=== PATIENT | female | born 1935 | race Caucasian/White ===

== ENCOUNTER 2018-06-18 18:26 | Emergency (ER) | payer MEDICARE, OTHER, SELFPAY ==
[2018-06-18 18:30] VITALS: BP 139/84; PULSE 99; RESP 18; TEMP 36.6; O2SAT 99
--- NOTE | 2018-06-18 18:40 | DI.RAD.S_ITS ---
PROCEDURE: XR CHEST 2V INDICATIONS: Shortness of breath TECHNIQUE: 2 views of the chest were acquired. COMPARISON: None. FINDINGS: Surgical changes and devices: None. Lungs and pleura: Lungs are clear. 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 No pleural effusions or pneumothorax. Mediastinum: Mediastinal contours are normal. Heart size is normal. Bones and chest wall: No suspicious bony abnormalities. Soft tissues appear unremarkable. 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 No gross pulmonary infiltrates. Dictated by: Aakash Conway M.D. on 06/18/2018 at 20:41 Approved by: Aakash Conway M.D. on 06/18/2018 at 20:42
--- NOTE | 2018-06-18 19:50 | ED.SOB ---
HPI - SOB/Dyspnea General Chief Complaint: Shortness of Breath/Dyspnea Stated Complaint: SOB Time Seen by Provider: 06/18/18 19:50 Source: patient Mode of arrival: ambulatory Limitations: no limitations History of Present Illness 82-year-old female with chronic atrial fibrillation. Is also on Lasix and spironolactone. States she has been diagnosed with CHF. Does not know her last ejection fraction. States that for the past several days if not weeks she has had progressively worsening shortness of breath especially dyspnea on exertion. No chest pain. Does have lower extremity swelling. States in the past she has had increase her Lasix dose but currently is only on 40 mg a day. Was brought in today because her kids told her she should get checked out. Related Data Allergies Allergy/AdvReac Type Severity Reaction Status Date / Time gabapentin Allergy Depression Verified 06/18/18 18:34 Review of Systems Constitutional Denies fever(s) Cardiovascular Denies chest pain, Reports dyspnea and Reports dyspnea on exertion Respiratory Denies cough, Reports dyspnea and Reports dyspnea on exertion Gastrointestinal Gastrointestinal: Denies abdominal pain, Denies nausea and Denies vomiting Musculoskeletal Denies myalgias and Denies arthralgias Integumentary/Breasts Denies rash Hematologic/Lymphatic Denies easy bruising Allergic/Immunologic Denies urticaria FOR[facility]LY [facility] Medical History Atrial fibrillation (Acute) Congestive heart failure (Acute) Social History Smoking Status: Never smoker Social History Smoking Status: Never smoker Exam Initial Vital Signs Initial Vital Signs: Vital Signs Temperature 97.8 F 06/18/18 18:30 Pulse Rate 99 H 06/18/18 18:30 Respiratory Rate 18 06/18/18 18:30 Blood Pressure 139/84 06/18/18 18:30 Pulse Oximetry 99 06/18/18 18:30 Const General: cooperative, comfortable, well developed, well groomed and No acute distress Orientation: alert, awake and oriented x3 HENMT Head: normal to inspection and normocephalic Resp Effort & Inspection: normal respiratory effort Auscultation: clear to auscultation bilaterally Cardio Rate: regular rate Rhythm: abnormal rhythm Pulses: radial pulses present GI Inspection: non-distended Palpation: soft Skin Lesions: no lesions Rashes: no rashes Neuro General: alert, awake and oriented x3 Extrem General: normal to inspection and capillary refill normal Psych Appearance: grossly normal and well kempt Course Orders Ordered: ED Orders 06/18/18 18:40 XR chest 2V Stat EKG-12 Lead Stat Vital Signs - 8 hr 06/18/18 21:24 Pulse Rate 81 Respiratory Rate 15 Blood Pressure [Left Arm] 128/82 Pulse Oximetry 98 MDM - SOB/Dyspnea Imaging Data Chest x-ray: Radiologist's impression: [address] [address] XRay Report Signed Patient: Nadia Da Silva GMR#: [id number] : [id number]:[id number] Age/Sex: 82 / FDate of Service: 06/18/18 Loc: ED Accession Number: [id number] Procedure: XR chest 2V Ordering Provider: Zhao Bolanos D.O. PROCEDURE: XR CHEST 2V INDICATIONS: Shortness of breath TECHNIQUE: 2 views of the chest were acquired. COMPARISON: None. FINDINGS: Surgical changes and devices: None. Lungs and pleura: Lungs are clear. 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 No pleural effusions or pneumothorax. Mediastinum: Mediastinal contours are normal. Heart size is normal. Bones and chest wall: No suspicious bony abnormalities. Soft tissues appear unremarkable. 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 No gross pulmonary infiltrates. Dictated by: Aakash Conway M.D. on 06/18/2018 at 20:41 Approved by: Aakash Conway M.D. on 06/18/2018 at 20:42 ECG Data Attestation: I personally reviewed and interpreted this ECG as follows: Prior ECG tracings: not available for review Interpretation: Atrial fibrillation Ventricular rate of 95 Normal axis Normal QRS Normal QTC No ST T wave changes MDM Narrative Medical decision making narrative: Patient not any respiratory distress. Not hypoxic. Not tachypneic. No signs of pneumonia on the x-ray. I do suspect that she has the beginnings of fluid overload secondary to her history of atrial fibrillation. Will increase her Lasix for the next couple days. She is currently on potassium. Will have her contact her primary doctor for follow-up. She was given return precautions. She expressed understanding and agreement with plan. Discharge Plan Departure Patient Disposition: Home Clinical Impression: Edema extremities Atrial fibrillation Qualifiers: Atrial fibrillation type: chronic Qualified Code(s): I48.2 - Chronic atrial fibrillation Discharge Date/Time: 06/18/18 21:51 Interventions: ED Discharge Assessment Last Done: 06/18/18 21:50 Instructions: Edema (Alternative Therapy), DI for Peripheral Edema -- Bilateral Activity Restrictions/Additional Instructions: Continue to take your potassium. I would increase your Lasix to 80 mg a day for the next 2 days. If this does not help your edema that you can increase it to 120 mg a day. I would not go above this dose without consulting your primary doctor. Tomorrow contact your primary doctor for follow-up early next week. Return to the emergency department for any new or worsening symptoms
[2018-06-18 21:24] VITALS: BP 128/82; PULSE 81; RESP 15; O2SAT 98
== END 2018-06-18 21:51 | disposition home or self-care (01) ==
PROVIDERS: Emergency Provider Emergency Medicine; Family Provider Family Medicine
DX: R60.0 Localized edema (principal); I48.2 Chronic atrial fibrillation
CPT/HCPCS: 71046; 93005; 99282; 99284

== ENCOUNTER → 2020-09-10 14:47 | Outpatient (CLI) | payer MEDICARE, OTHER, SELFPAY ==
--- NOTE | 2020-09-10 | DI.ECHO.S_ITS ---
[facility] +---------+ : : [id number] . : : : : [place] : : : : [id number] : : : : Phone: [phone] Echocardiogram Report + + :Name: REJI PEACE Study Date: 09/10/2020 Height: 62 in : :[facility] ReadingLocation: Weight: 140 lb : : Gender: Female BSA: 1.6 m2 : :: 1935 Age: 85 yrs BP: 128/96 mmHg: :Reason For Study: Atrial fibrillation : :Ordering Physician: HONORIO, : :MARK Velásquez Performed By: Jorge Chappell : :Referring: MARK OLMEDO : + + Interpretation Summary The ejection fraction is estimated to be 25-30%. There is moderate global hypokinesis of the left ventricle. Both atria are severely dilated. There is mild to moderate mitral regurgitation. There is moderate tricuspid regurgitation. The right ventricular systolic pressure is estimated to be at least 48 mmHg based on an estimated right atrial pressure of 8 mm Hg. Procedure: A two-dimensional transthoracic echocardiogram with color flow and Doppler was performed. The study quality was technically adequate. There is no prior echocardiogram noted for this patient. The patient was in atrial fibrillation with heart rates between 98-153 bpm during the exam. Left Ventricle: The left ventricle is normal in size and wall thickness. The ejection fraction is estimated to be 25-30%. There is moderate global hypokinesis of the left ventricle. Diastolic function could not be accurately assessed due to atrial fibrillation. Right Ventricle: The right ventricle is normal in size and function. Atria: Both atria are severely dilated. There is no Doppler evidence for an interatrial shunt. Mitral Valve: There is mild mitral annular calcification. The mitral valve leaflets appear mildly thickened, but open well. There is mild to moderate mitral regurgitation. Aortic Valve: The aortic valve is normal in structure and function. There is trace aortic regurgitation. Tricuspid Valve: The tricuspid valve is normal in structure and function. There is moderate tricuspid regurgitation. The right ventricular systolic pressure is estimated to be at least 48 mmHg based on an estimated right atrial pressure of 8 mm Hg. Pulmonic Valve: The pulmonic valve is normal in structure and function. There is mild pulmonic regurgitation. Great Vessels: The aortic root is normal size. The IVC is of normal diameter and collapses less than 50% with a sniff. This suggests a right atrial pressure of 8 mm Hg. Pericardium/ Pleura There is no pericardial effusion. There is no pleural effusion. MMode/2D Measurements & Calculations LVIDd: 4.6 cm LVOT diam: 1.9 cm LVIDs: 3.7 cm Ao root diam: 2.9 cm FS: 20.2 % asc Aorta Diam: 2.9 cm IVSd: 0.79 cm LVPWd: 0.78 cm LV bennett. diameter/BSA (cm/m^2): 2.8 LV sys. diameter/BSA (cm/m^2): 2.3 LA A2 area: 23.5 cm2 RA long axis: 7.4 cm LA A4 area: 29.3 cm2 RA area: 31.3 cm2 LA length (vol): 7.1 cm RA vol: 112.3 ml LA vol: 82.4 ml RA : 68.4 ml/m2 LA vol index: 50.2 ml/m2 IVC diam: 2.0 cm TAPSE: 1.8 cm Doppler Measurements & Calculations Ao V2 max: 111.3 cm/sec LVOT Max Xavier: 58.7 cm/sec Ao V2 mean: 82.3 cm/sec LV V1 max P.4 mmHg Ao max P.0 mmHg LV V1 VTI: 10.6 cm Ao mean P.9 mmHg CAITLIN(I,D): 1.7 cm2 Ao V2 VTI: 17.4 cm CAITLIN(V,D): 1.4 cm2 sev ratio: 0.61 CAITLIN indexed to BSA (cm^2/m^2): 1.0 TR max xavier: 290.9 cm/sec MR VTI: 154.4 cm TR max P.9 mmHg PA V2 max: 81.0 cm/sec PA V2 mean: 56.4 cm/sec PA mean P.4 mmHg PA pr(Accel): 43.9 mmHg SV(LVOT): 28.9 ml Reading Physician:05:[id number] PM
[2020-09-10 16:52] LABS: BUN Creatinine Ratio 21.5 (6-22); Blood Urea Nitrogen 17 mg/dL (7-17); Calcium 10.9 mg/dL (8.4-10.2); Carbon Dioxide 25 mmol/L (22-32); Chloride 107 mmol/L (98-107); Estimated Glomerular Filt Rate > 60.0 mL/min (>60); Glucose 107 mg/dL (80-110); HEMOLYSIS < 15 (0-50); Potassium 4.2 mmol/L (3.4-5.1); Sodium 140 mmol/L (137-145)
[2020-09-10 16:57] LABS: NT-proBNP (BNP-Adult 18+) 2790 pg/mL (<450)
== END ==
PROVIDERS: Family Provider Family Medicine; Referring Provider Nurse Practitioner; Visit Provider Nurse Practitioner
DX: I48.20 Chronic atrial fibrillation, unspecified (principal); I08.1 Rheumatic disorders of both mitral and tricuspid valves; R06.00 Dyspnea, unspecified
CPT/HCPCS: 36415; 80048; 83880; 93306

== ENCOUNTER 2020-09-13 14:51 | Emergency (ER) | payer MEDICARE, OTHER, SELFPAY ==
[2020-09-13] VITALS (16 sets, daily range): BP systolic 111–172; BP diastolic 63–114; PULSE 83–151; RESP 16–28; TEMP 36.9; O2SAT 82–99; BMI 25.6
--- NOTE | 2020-09-13 14:59 | DI.RAD.S_ITS ---
PROCEDURE: XR CHEST 1V INDICATIONS: chest pain TECHNIQUE: One view of the chest was acquired. COMPARISON: [facility], CR, XR CHEST 2V, 06/18/2018, 19:44. FINDINGS: Surgical changes and devices: None. Lungs and pleura: Mild appearance of increased of pulmonary vascularity. No pleural effusions or pneumothorax. Mediastinum: Mediastinal contours appear normal. Heart size is enlarged. Bones and chest wall: No suspicious bony lesions. Overlying soft tissues appear unremarkable. IMPRESSION: Mild increased vascularity suggestive of edema. Dictated by: Mitzy Llanes M.D. on 09/13/2020 at 15:52 Approved by: Mitzy Llanes M.D. on 09/13/2020 at 15:53
[2020-09-13 17:36] LABS: Prothrombin Time 56.8 SECONDS (10.1-12.7)
[2020-09-13 17:39] LABS: PTT Partial Thromboplastin Tim 52 SECONDS (26.4-36.2)
[2020-09-13 17:41] LABS: Alanine Aminotransferase 22 IU/L (<35); Albumin 4.5 g/dL (3.5-5.0); Albumin Globulin Ratio 1.2 (1.0-2.8); Alkaline Phosphatase 126 U/L (38-126); Aspartate Aminotransferase 37 IU/L (14-36); BUN Creatinine Ratio 21.3 (6-22); Blood Urea Nitrogen 17 mg/dL (7-17); Calcium 10.9 mg/dL (8.4-10.2); Carbon Dioxide 25 mmol/L (22-32); Chloride 105 mmol/L (98-107); Creatine Kinase 276 U/L (30-135); Estimated Glomerular Filt Rate > 60.0 mL/min (>60); Globulin 3.8 g/dL (1.7-4.1); Glucose 116 mg/dL (80-110); HEMOLYSIS < 15 (0-50); Lipase 131 U/L (23-300); Potassium 3.9 mmol/L (3.4-5.1); Sodium 140 mmol/L (137-145); Total Protein 8.3 g/dL (6.3-8.2)
[2020-09-13 17:44] LABS: Add Manual Diff / Slide Review NO; Basophils Absolute Auto 100 /uL (0-100); Basophils Percent Auto 1.1 % (0-2); Eosinophils Absolute Auto 200 /uL (0-450); Eosinophils Percent Auto 2.2 % (2-4); Hematocrit 43.5 % (36-46); Hemoglobin 14.3 g/dL (12.0-16.0); Lymphocytes Absolute Auto 3700 /uL (1100-4500); Lymphocytes Percent Auto 36.5 % (25-40); Mean Corpuscular Hemoglobin 30.7 PG (26-34); Mean Corpuscular Volume 93.1 fL (80-100); Monocytes Absolute Auto 1200 /uL (0-900); Monocytes Percent Auto 12.4 % (3-14); Neutrophils Absolute Auto 4800 /uL (1500-7000); Neutrophils Percent Auto 47.8 % (50-75); Platelet Count 163 X10^3/uL (150-400); Red Blood Cell Count 4.67 X10^6/uL (4.0-5.2); Red Cell Distribution Width 14.2 % (11.6-14.8)
[2020-09-13 17:53] LABS: INR 4.8 (0.9-1.3); NT-proBNP (BNP-Adult 18+) 1720 pg/mL (<450); Troponin I < 0.012 ng/mL (0.01-0.034)
[2020-09-13 17:56] LABS: CKMB % Relative Index 2.8 % (1.5-5.0); Creatine Kinase MB 7.66 ng/mL (<2.37)
--- NOTE | 2020-09-13 18:06 | ED_ITS ---
HPI - Extremity Problem <Harvey Walker DO - Last Filed: 09/15/20 01:14> General Chief complaint: Extremity Problem,Nontraumatic Stated complaint: Retaining fluid-sent over from cardiology Time Seen by Provider: 09/13/20 18:06 Source: patient and family Mode of arrival: Wheelchair Limitations: no limitations History of Present Illness HPI Narrative: 85-year-old female nonsmoker with history of persistent AFib, CHF and worsening ejection fraction sent here by Cardiology due to failing medical therapy and request to expedite an evaluation for possible pacemaker. She had a recent echo noting an EF down to 25%. She is taking medications as directed and denies any significant shortness of breath, fatigue or weight gain but states minimal exertion will make her profoundly short of breath. She states her heart rate is pretty much always well above 100. She denies runny nose or sore throat. She denies any chest pain. MD Complaint: extremity swelling Onset (ago): day(s) Associated symptoms: shortness of breath Related Data Home Medications Medication Instructions Recorded Confirmed amitriptyline 25 mg tablet 25 mg PO BEDTIME 09/13/20 09/13/20 digoxin 125 mcg (0.125 mg) tablet 125 mcg PO DAILY 09/13/20 09/13/20 furosemide 40 mg tablet 40 mg PO DAILY 09/13/20 09/13/20 metoprolol succinate 100 mg 100 mg PO BID 09/13/20 09/14/20 tablet,extended release 24 hr warfarin 2.5 mg tablet See Rx Instructions .ROUTE .COMPLEX 09/13/20 09/13/20 losartan 25 mg tablet 25 mg PO DAILY 09/14/20 09/14/20 Allergies Allergy/AdvReac Type Severity Reaction Status Date / Time gabapentin Allergy Depression Verified 09/13/20 15:06 Review of Systems <Harvey Walker DO - Last Filed: 09/15/20 01:14> Constitutional Constitutional: Denies chills, Denies fatigue, Denies fever(s), Denies frequent falls, Denies lethargy and Denies weakness Eyes Eyes: Denies change in vision, Denies eye discharge, Denies irritation and Denies loss of vision ENT Ears, Nose, Mouth, and Throat: Denies change in voice, Denies dizziness, Denies neck pain, Denies sore throat and Denies throat swelling Cardiovascular Cardiovascular: Denies chest pain, Denies irregular heart rhythm, Reports leg edema, Denies lightheadedness, Denies palpitations, Reports dyspnea, Reports dyspnea on exertion and Reports orthopnea Respiratory Respiratory: Denies cough, Reports dyspnea, Reports dyspnea on exertion and Denies wheezing Gastrointestinal Gastrointestinal: Denies abdominal pain, Denies change in bowel habits, Denies diarrhea, Denies nausea and Denies vomiting Musculoskeletal Musculoskeletal: Denies neck pain and Denies numbness Integumentary/Breasts Skin/Breast: Denies pruritus, Denies erythema, Denies rash and Denies wounds Neurologic Neurologic: Denies behavioral changes, Denies confusion, Denies dizziness, Denies frequent falls, Denies loss of vision, Denies numbness and Denies weakness Psychiatric Psychiatric: Denies anxiety, Denies behavioral changes, Denies confusion, Denies depression, Denies homicidal ideation and Denies suicidal ideation Endocrine Endocrine: Denies fatigue, Denies flushing and Denies palpitations Hematologic/Lymphatic Hematologic/Lymphatic: Denies easy bruising Allergic/Immunologic Allergic/Immunologic: Denies urticaria, Denies throat swelling and Denies wheezing Patient History <Harvey Walker DO - Last Filed: 09/15/20 01:14> Medical History Atrial fibrillation Congestive heart failure Social History Smoking Status: Never smoker Smoking Status: Never smoker alcohol intake frequency: 0-2 drinks per day Substance Use Type: does not use Exam <Harvey Walker DO - Last Filed: 09/15/20 01:14> Narrative Exam Narrative: GENERAL: [85] year old patient appears stated age. Well- developed patient, in mild distress. HEAD: Atraumatic. Normocephalic. EYES: Pupils equal round and reactive. Extraocular motions intact. No scleral icterus. No injection or drainage. ENT: Nose without bleeding, purulent drainage. Throat without erythema, tonsillar hypertrophy or exudate. Airway patent. NECK: Trachea midline. Non tender CARDIOVASCULAR: Tachycardic and irregular rhythm without murmurs, gallops, or rubs. RESPIRATORY: No significant work of breathing, faint crackles bilateral bases GASTROINTESTINAL: Abdomen soft, non-tender, nondistended. EXTREMITIES: 2+ pitting edema bilateral lower extremities BACK: Nontender without deformity or crepitance. No flank tenderness. NEURO: AOx3. SKIN: No rash or erythema of visible areas Initial Vital Signs Initial Vital Signs: Vital Signs Temperature 98.4 F 09/13/20 15:02 Pulse Rate 114 H 09/13/20 15:02 Respiratory Rate 18 09/13/20 15:02 Blood Pressure 126/88 09/13/20 15:02 Pulse Oximetry 99 09/13/20 15:02 <Eleazar Greenberg MD - Last Filed: 09/24/20 01:25> Initial Vital Signs Initial Vital Signs: Vital Signs Temperature 98.4 F 09/13/20 15:02 Pulse Rate 114 H 09/13/20 15:02 Respiratory Rate 18 09/13/20 15:02 Blood Pressure 126/88 09/13/20 15:02 Pulse Oximetry 99 09/13/20 15:02 Course <Harvey Walker DO - Last Filed: 09/15/20 01:14> Course Course Narrative: Discussed case with on-call Cardiology, Dr. Flynn, he has reviewed the chart and notes, hope is to transfer patient who likely needs pacer currently no beds at [facility], paperwork faxed, we are in the queue. Rina has been notified. Orders Ordered: Discontinued Medications Amitriptyline HCl (Amitriptyline 25 Mg Tablet) 25 mg PO NOW ONE Stop: 09/13/20 22:49 Last Admin: 09/13/20 23:06 Dose: 25 mg Documented by: [email or web address] Digoxin (Digoxin 0.125 Mg Tablet) 0.125 mg PO NOW ONE Stop: 09/14/20 08:01 Last Admin: 09/14/20 09:49 Dose: 0.125 mg Documented by: [email or web address] Furosemide (Furosemide 40 Mg/4 Ml Vial) 40 mg IV NOW ONE Stop: 09/13/20 20:37 Last Admin: 09/13/20 20:58 Dose: 40 mg Documented by: JOEL Furosemide (Furosemide 40 Mg Tablet) 40 mg PO NOW ONE Stop: 09/14/20 12:36 Last Admin: 09/14/20 12:53 Dose: 40 mg Documented by: TRACI Loperamide HCl (Loperamide 2 Mg Capsule) 4 mg PO NOW ONE Stop: 09/14/20 15:57 Last Admin: 09/14/20 16:02 Dose: 4 mg Documented by: LAUREN Losartan Potassium (Losartan 25 Mg Tablet) 25 mg PO NOW ONE Stop: 09/13/20 22:49 Last Admin: 09/13/20 23:06 Dose: 25 mg Documented by: SABI Metoprolol Succinate (Metoprolol Er 50 Mg Tablet) 100 mg PO NOW ONE Stop: 09/13/20 22:46 Last Admin: 09/13/20 23:06 Dose: 100 mg Documented by: SABI Metoprolol Succinate (Metoprolol Er 50 Mg Tablet) 100 mg PO NOW ONE Stop: 09/14/20 12:38 Last Admin: 09/14/20 12:54 Dose: 100 mg Documented by: TRACI Warfarin Sodium (Warfarin 5 Mg Tablet) 0.125 mg PO NOW ONE Stop: 09/13/20 22:48 Last Admin: 09/13/20 23:07 Dose: 0.125 mg Documented by: SABI Vital Signs Vital signs: Vital Signs - 8 hr 09/14/20 17:30 09/14/20 17:56 Pulse Rate 105 H 120 H Respiratory Rate 19 18 Blood Pressure 124/83 144/78 H Pulse Oximetry 96 92 <Eleazar Greenberg MD - Last Filed: 09/24/20 01:25> Course Course Narrative: 7:00 a.m.. Sign out from the night physician, awaiting call back from [facility] for admission. Awaiting for bed availability. Cardiology desires patient to be transferred there for continuity of care and possible pacemaker. No new issues. 4:06 p.m.. Long wait for bed due to bed shortage is in staff in all the hospitals locally. Orders Ordered: Discontinued Medications Amitriptyline HCl (Amitriptyline 25 Mg Tablet) 25 mg PO NOW ONE Stop: 09/13/20 22:49 Last Admin: 09/13/20 23:06 Dose: 25 mg Documented by: SABI Digoxin (Digoxin 0.125 Mg Tablet) 0.125 mg PO NOW ONE Stop: 09/14/20 08:01 Last Admin: 09/14/20 09:49 Dose: 0.125 mg Documented by: JSHAFF Furosemide (Furosemide 40 Mg/4 Ml Vial) 40 mg IV NOW ONE Stop: 09/13/20 20:37 Last Admin: 09/13/20 20:58 Dose: 40 mg Documented by: JOEL Furosemide (Furosemide 40 Mg Tablet) 40 mg PO NOW ONE Stop: 09/14/20 12:36 Last Admin: 09/14/20 12:53 Dose: 40 mg Documented by: TRACI Loperamide HCl (Loperamide 2 Mg Capsule) 4 mg PO NOW ONE Stop: 09/14/20 15:57 Last Admin: 09/14/20 16:02 Dose: 4 mg Documented by: LAUREN Losartan Potassium (Losartan 25 Mg Tablet) 25 mg PO NOW ONE Stop: 09/13/20 22:49 Last Admin: 09/13/20 23:06 Dose: 25 mg Documented by: SABI Metoprolol Succinate (Metoprolol Er 50 Mg Tablet) 100 mg PO NOW ONE Stop: 09/13/20 22:46 Last Admin: 09/13/20 23:06 Dose: 100 mg Documented by: SABI Metoprolol Succinate (Metoprolol Er 50 Mg Tablet) 100 mg PO NOW ONE Stop: 09/14/20 12:38 Last Admin: 09/14/20 12:54 Dose: 100 mg Documented by: TRACI Warfarin Sodium (Warfarin 5 Mg Tablet) 0.125 mg PO NOW ONE Stop: 09/13/20 22:48 Last Admin: 09/13/20 23:07 Dose: 0.125 mg Documented by: SABI Consultations Consultation #1: Spoke with hospitalist [facility] Dr. cooper, will accept pt Time: 16:06 Vital Signs Vital signs: Vital Signs - 8 hr 09/14/20 17:30 09/14/20 17:56 Pulse Rate 105 H 120 H Respiratory Rate 19 18 Blood Pressure 124/83 144/78 H Pulse Oximetry 96 92 MDM - Extremity (Nontraumatic) <Harvey Walker DO - Last Filed: 09/15/20 01:14> Lab Data Result diagrams: 09/13/20 17:22 09/13/20 17:22 Labs: Lab Results 09/13/20 09/13/20 09/13/20 Range/Units 17:22 17:22 17:22 WBC 10.0 (4.5-11.0) X10^3/uL RBC 4.67 (4.0-5.2) X10^6/uL Hgb 14.3 (12.0-16.0) g/dL Hct 43.5 (36-46) % MCV 93.1 (80-100) fL MCH 30.7 (26-34) PG MCHC 33.0 (30-36) % RDW 14.2 (11.6-14.8) % Plt Count 163 (150-400) X10^3/uL Neut % (Auto) 47.8 L (50-75) % Lymph % (Auto) 36.5 (25-40) % [place] % (Auto) 12.4 (3-14) % Eos % (Auto) 2.2 (2-4) % Baso % (Auto) 1.1 (0-2) % Neut # (Auto) 4800 (4811-3174) /uL Lymph # (Auto) 3700 (6923-0065) /uL [place] # (Auto) 1200 H (0-900) /uL Eos # (Auto) 200 (0-450) /uL Baso # (Auto) 100 (0-100) /uL PT 56.8 H (10.1-12.7) SECONDS INR 4.8 H* (0.9-1.3) APTT 52 H (26.4-36.2) SECONDS Sodium 140 (137-145) mmol/L Potassium 3.9 (3.4-5.1) mmol/L Chloride 105 (98-107) mmol/L Carbon Dioxide 25 (22-32) mmol/L BUN 17 (7-17) mg/dL Creatinine 0.80 (0.52-1.04) mg/dL Estimated GFR > 60.0 (>60) mL/min BUN/Creatinine Ratio 21.3 (6-22) Glucose 116 H (80-110) mg/dL Calcium 10.9 H (8.4-10.2) mg/dL Total Bilirubin 1.0 (0.2-1.3) mg/dL AST 37 H (14-36) IU/L ALT 22 (<35) IU/L Alkaline Phosphatase 126 (38-126) U/L Total Creatine Kinase 276 H (30-135) U/L CK-MB (CK-2) 7.66 H (<2.37) ng/mL CK-MB (CK-2) Rel Index 2.8 (1.5-5.0) % Troponin I < 0.012 (0.01-0.034) ng/mL NT-Pro-B Natriuret Pep 1720 H (<450) pg/mL Total Protein 8.3 H (6.3-8.2) g/dL Albumin 4.5 (3.5-5.0) g/dL Globulin 3.8 (1.7-4.1) g/dL Albumin/Globulin Ratio 1.2 (1.0-2.8) Lipase 131 (23-300) U/L Digoxin (0.8-2.0) ng/mL SARS-CoV-2 (PCR) (Negative) 09/13/20 09/13/20 09/13/20 Range/Units 17:22 17:22 18:40 WBC (4.5-11.0) X10^3/uL RBC (4.0-5.2) X10^6/uL Hgb (12.0-16.0) g/dL Hct (36-46) % MCV (80-100) fL MCH (26-34) PG MCHC (30-36) % RDW (11.6-14.8) % Plt Count (150-400) X10^3/uL Neut % (Auto) (50-75) % Lymph % (Auto) (25-40) % [place] % (Auto) (3-14) % Eos % (Auto) (2-4) % Baso % (Auto) (0-2) % Neut # (Auto) (9816-5072) /uL Lymph # (Auto) (2546-6191) /uL [place] # (Auto) (0-900) /uL Eos # (Auto) (0-450) /uL Baso # (Auto) (0-100) /uL PT (10.1-12.7) SECONDS INR (0.9-1.3) APTT (26.4-36.2) SECONDS Sodium (137-145) mmol/L Potassium (3.4-5.1) mmol/L Chloride (98-107) mmol/L Carbon Dioxide (22-32) mmol/L BUN (7-17) mg/dL Creatinine (0.52-1.04) mg/dL Estimated GFR (>60) mL/min BUN/Creatinine Ratio (6-22) Glucose (80-110) mg/dL Calcium (8.4-10.2) mg/dL Total Bilirubin (0.2-1.3) mg/dL AST (14-36) IU/L ALT (<35) IU/L Alkaline Phosphatase (38-126) U/L Total Creatine Kinase (30-135) U/L CK-MB (CK-2) (<2.37) ng/mL CK-MB (CK-2) Rel Index (1.5-5.0) % Troponin I < 0.012 (0.01-0.034) ng/mL NT-Pro-B Natriuret Pep (<450) pg/mL Total Protein (6.3-8.2) g/dL Albumin (3.5-5.0) g/dL Globulin (1.7-4.1) g/dL Albumin/Globulin Ratio (1.0-2.8) Lipase (23-300) U/L Digoxin < 0.4 L (0.8-2.0) ng/mL SARS-CoV-2 (PCR) Negative (Negative) <Eleazar Greenberg MD - Last Filed: 09/24/20 01:25> Lab Data Labs: Lab Results 09/13/20 09/13/20 09/13/20 Range/Units 17:22 17:22 17:22 WBC 10.0 (4.5-11.0) X10^3/uL RBC 4.67 (4.0-5.2) X10^6/uL Hgb 14.3 (12.0-16.0) g/dL Hct 43.5 (36-46) % MCV 93.1 (80-100) fL MCH 30.7 (26-34) PG MCHC 33.0 (30-36) % RDW 14.2 (11.6-14.8) % Plt Count 163 (150-400) X10^3/uL Neut % (Auto) 47.8 L (50-75) % Lymph % (Auto) 36.5 (25-40) % [place] % (Auto) 12.4 (3-14) % Eos % (Auto) 2.2 (2-4) % Baso % (Auto) 1.1 (0-2) % Neut # (Auto) 4800 (2326-8525) /uL Lymph # (Auto) 3700 (4844-2476) /uL [place] # (Auto) 1200 H (0-900) /uL Eos # (Auto) 200 (0-450) /uL Baso # (Auto) 100 (0-100) /uL PT 56.8 H (10.1-12.7) SECONDS INR 4.8 H* (0.9-1.3) APTT 52 H (26.4-36.2) SECONDS Sodium 140 (137-145) mmol/L Potassium 3.9 (3.4-5.1) mmol/L Chloride 105 (98-107) mmol/L Carbon Dioxide 25 (22-32) mmol/L BUN 17 (7-17) mg/dL Creatinine 0.80 (0.52-1.04) mg/dL Estimated GFR > 60.0 (>60) mL/min BUN/Creatinine Ratio 21.3 (6-22) Glucose 116 H (80-110) mg/dL Calcium 10.9 H (8.4-10.2) mg/dL Total Bilirubin 1.0 (0.2-1.3) mg/dL AST 37 H (14-36) IU/L ALT 22 (<35) IU/L Alkaline Phosphatase 126 (38-126) U/L Total Creatine Kinase 276 H (30-135) U/L CK-MB (CK-2) 7.66 H (<2.37) ng/mL CK-MB (CK-2) Rel Index 2.8 (1.5-5.0) % Troponin I < 0.012 (0.01-0.034) ng/mL NT-Pro-B Natriuret Pep 1720 H (<450) pg/mL Total Protein 8.3 H (6.3-8.2) g/dL Albumin 4.5 (3.5-5.0) g/dL Globulin 3.8 (1.7-4.1) g/dL Albumin/Globulin Ratio 1.2 (1.0-2.8) Lipase 131 (23-300) U/L Digoxin (0.8-2.0) ng/mL SARS-CoV-2 (PCR) (Negative) 09/13/20 09/13/20 09/13/20 Range/Units 17:22 17:22 18:40 WBC (4.5-11.0) X10^3/uL RBC (4.0-5.2) X10^6/uL Hgb (12.0-16.0) g/dL Hct (36-46) % MCV (80-100) fL MCH (26-34) PG MCHC (30-36) % RDW (11.6-14.8) % Plt Count (150-400) X10^3/uL Neut % (Auto) (50-75) % Lymph % (Auto) (25-40) % [place] % (Auto) (3-14) % Eos % (Auto) (2-4) % Baso % (Auto) (0-2) % Neut # (Auto) (1327-8708) /uL Lymph # (Auto) (4822-2396) /uL [place] # (Auto) (0-900) /uL Eos # (Auto) (0-450) /uL Baso # (Auto) (0-100) /uL PT (10.1-12.7) SECONDS INR (0.9-1.3) APTT (26.4-36.2) SECONDS Sodium (137-145) mmol/L Potassium (3.4-5.1) mmol/L Chloride (98-107) mmol/L Carbon Dioxide (22-32) mmol/L BUN (7-17) mg/dL Creatinine (0.52-1.04) mg/dL Estimated GFR (>60) mL/min BUN/Creatinine Ratio (6-22) Glucose (80-110) mg/dL Calcium (8.4-10.2) mg/dL Total Bilirubin (0.2-1.3) mg/dL AST (14-36) IU/L ALT (<35) IU/L Alkaline Phosphatase (38-126) U/L Total Creatine Kinase (30-135) U/L CK-MB (CK-2) (<2.37) ng/mL CK-MB (CK-2) Rel Index (1.5-5.0) % Troponin I < 0.012 (0.01-0.034) ng/mL NT-Pro-B Natriuret Pep (<450) pg/mL Total Protein (6.3-8.2) g/dL Albumin (3.5-5.0) g/dL Globulin (1.7-4.1) g/dL Albumin/Globulin Ratio (1.0-2.8) Lipase (23-300) U/L Digoxin < 0.4 L (0.8-2.0) ng/mL SARS-CoV-2 (PCR) Negative (Negative) MDM Narrative Medical decision making narrative: Appropriate transfer to [facility] for continuity of care and further evaluation and treatment by patient's Cardiology team. Discharge Plan Departure Patient Disposition: [facility] Clinical Impression: Atrial fibrillation Qualifiers: Atrial fibrillation type: unspecified Qualified Code(s): I48.91 - Unspecified atrial fibrillation Prescriptions: No Action furosemide 40 mg Tablet 40 mg PO DAILY RF: 0 metoprolol succinate 100 mg tablet extended release 24 hr 100 mg PO BID RF: 0 warfarin 2.5 mg tablet See Rx Instructions .ROUTE .COMPLEX RF: 0 digoxin 125 mcg (0.125 mg) tablet 125 mcg PO DAILY RF: 0 amitriptyline 25 mg Tablet 25 mg PO BEDTIME RF: 0 losartan 25 mg Tablet 25 mg PO DAILY RF: 0 Referrals: Marsha Colin PA-C [Primary Care Provider] -
[2020-09-13 18:21] LABS: COVID19 - ADMIT (NP swab/PCR) Negative (Negative)
[2020-09-13 18:51] LABS: Digoxin < 0.4 ng/mL (0.8-2.0)
[2020-09-13 19:12] LABS: Troponin I < 0.012 ng/mL (0.01-0.034)
[2020-09-13] MEDS: FUROSEMIDE 40 MG/4 ML VIAL IV (20:58)
[2020-09-13] MEDS: LOSARTAN 25 MG TABLET PO (23:06)
[2020-09-13] MEDS: METOPROLOL ER 50 MG TABLET 100 MG PO (23:06)
[2020-09-13] MEDS: AMITRIPTYLINE 25 MG TABLET PO (23:06)
[2020-09-13] MEDS: WARFARIN 5 MG TABLET PO (23:07)
--- NOTE | 2020-09-13 23:18 | PC.NURSE ---
PLaced in a depends.
--- NOTE | 2020-09-13 23:19 | PC.NURSE ---
Patient given and sandwich, pudding, and farzana keyla per request.
[2020-09-14] VITALS (44 sets, daily range): BP systolic 94–144; BP diastolic 52–88; PULSE 93–148; RESP 12–24; O2SAT 91–99
[2020-09-14] MEDS: DIGOXIN 0.125 MG TABLET PO (09:49)
[2020-09-14] MEDS: FUROSEMIDE 40 MG TABLET PO (12:53)
[2020-09-14] MEDS: METOPROLOL ER 50 MG TABLET 100 MG PO (12:54)
[2020-09-14] MEDS: LOPERAMIDE 2 MG CAPSULE 4 MG PO (16:02)
--- NOTE | 2020-09-14 16:26 | P.PN_ITS ---
Subjective Subjective Date Patient Seen: 09/14/20 Time Patient Seen: 16:28 Interval history: 85 year old elderly female with a hx of atrial fibrillation with a rapid ventricular rate and previously unsuccessful cardioversion, cardiomyopathy with EF 25-30%, mild-moderate mitral regurgitation and pulmonary hypertension. She was admitted with acute heart failure in the setting of atrial fibrillation with a rapid ventricular rate. She reports an improvement in her shortness of breath since her admission. She continue to report palpitations with some heart racing. She denies any chest discomfort, resting dyspnea, PND or orthopnea. Exam Vital Signs (past 8 hours): - 09/14/20 08:30 09/14/20 09:00 09/14/20 09:30 Pulse Rate 105 H 98 H 99 H Respiratory Rate 12 13 12 Blood Pressure Pulse Oximetry 96 94 95 09/14/20 10:00 09/14/20 10:30 09/14/20 11:00 Pulse Rate 110 H 120 H 111 H Respiratory Rate 15 24 20 Blood Pressure Pulse Oximetry 95 97 98 09/14/20 11:30 09/14/20 12:00 09/14/20 12:30 Pulse Rate 109 H 113 H 105 H Respiratory Rate 24 Blood Pressure Pulse Oximetry 97 91 97 09/14/20 12:52 09/14/20 12:54 09/14/20 13:00 Pulse Rate 108 H 112 H 110 H Respiratory Rate Blood Pressure 125/85 125/85 Pulse Oximetry 98 97 09/14/20 13:20 09/14/20 13:30 09/14/20 14:00 Pulse Rate 120 H 113 H 105 H Respiratory Rate 20 19 15 Blood Pressure 124/84 117/67 Pulse Oximetry 97 98 96 09/14/20 14:08 09/14/20 14:22 09/14/20 14:30 Pulse Rate 102 H 104 H 98 H Respiratory Rate 17 14 Blood Pressure 95/52 L 95/52 L Pulse Oximetry 97 96 09/14/20 14:32 09/14/20 15:00 09/14/20 15:30 Pulse Rate 107 H 93 H 100 H Respiratory Rate 18 15 13 Blood Pressure 94/64 99/60 114/58 L Pulse Oximetry 97 98 97 09/14/20 16:00 Pulse Rate 99 H Respiratory Rate 24 Blood Pressure 113/73 Pulse Oximetry 96 Oxygen Delivery Method Room Air Narrative Exam Narrative: In no acute distress. Const General: cooperative and well developed Resp Effort & Inspection: normal respiratory effort Auscultation: clear to auscultation bilaterally Cardio Other: Irregularly irregular. Normal S1 and S2. No murmurs, rubs, click or gallops. JVD 4-5 cm. GI Palpation: soft and no hepatosplenomegaly Auscultation: normal bowel sounds Neuro General: patient alert, patient awake, patient oriented x3 and moves all extremities Extrem Other: 1+ pitting edema of lower extremities bilaterally Objective Labs Result Diagrams: 09/13/20 17:22 09/13/20 17:22 Labs: Laboratory Results - last 24 hr 09/13/20 09/13/20 09/13/20 17:22 17:22 17:22 WBC 10.0 RBC 4.67 Hgb 14.3 Hct 43.5 MCV 93.1 MCH 30.7 MCHC 33.0 RDW 14.2 Plt Count 163 Neut % (Auto) 47.8 L Lymph % (Auto) 36.5 [place] % (Auto) 12.4 Eos % (Auto) 2.2 Baso % (Auto) 1.1 Neut # (Auto) 4800 Lymph # (Auto) 3700 [place] # (Auto) 1200 H Eos # (Auto) 200 Baso # (Auto) 100 PT 56.8 H INR 4.8 H* APTT 52 H Sodium 140 Potassium 3.9 Chloride 105 Carbon Dioxide 25 BUN 17 Creatinine 0.80 Estimated GFR > 60.0 BUN/Creatinine Ratio 21.3 Glucose 116 H Calcium 10.9 H Total Bilirubin 1.0 AST 37 H ALT 22 Alkaline Phosphatase 126 Total Creatine Kinase 276 H CK-MB (CK-2) 7.66 H CK-MB (CK-2) Rel Index 2.8 Troponin I < 0.012 NT-Pro-B Natriuret Pep 1720 H Total Protein 8.3 H Albumin 4.5 Globulin 3.8 Albumin/Globulin Ratio 1.2 Lipase 131 Digoxin SARS-CoV-2 (PCR) 09/13/20 09/13/20 09/13/20 17:22 17:22 18:40 WBC RBC Hgb Hct MCV MCH MCHC RDW Plt Count Neut % (Auto) Lymph % (Auto) [place] % (Auto) Eos % (Auto) Baso % (Auto) Neut # (Auto) Lymph # (Auto) [place] # (Auto) Eos # (Auto) Baso # (Auto) PT INR APTT Sodium Potassium Chloride Carbon Dioxide BUN Creatinine Estimated GFR BUN/Creatinine Ratio Glucose Calcium Total Bilirubin AST ALT Alkaline Phosphatase Total Creatine Kinase CK-MB (CK-2) CK-MB (CK-2) Rel Index Troponin I < 0.012 NT-Pro-B Natriuret Pep Total Protein Albumin Globulin Albumin/Globulin Ratio Lipase Digoxin < 0.4 L SARS-CoV-2 (PCR) Negative [facility] Medical History Atrial fibrillation Congestive heart failure Social History Smoking Status: Never smoker Assessment & Plan Assessment & Plan narrative: 1. Acute on chronic heart failure with reduced EF 25-30%. She reports an improvement in her dyspnea. Her lungs are clear to asculatation. She continue to have some 1+ pitting edema bilaterally.. Continue furosemide 40 mg daily continue metoprolol succ 100 mg BID Continue digoxin 125 mcg daoily 2. Atrial fibrillation with rapid ventricular rate. She remains in atrial fibrillation with a heart rate in 99-114 depite metoprolol su7cc 100 mg BID. Continue metoprolol succ 100 mg BID consider refer to Dr. Flynn for assistance with atrial fibrillation management Continue warfarin 1.25 mg nightly Transfer to [facility]
== END 2020-09-14 18:23 | disposition short-term general hospital (02) ==
PROVIDERS: Emergency Medicine; Emergency Provider Emergency Medicine; Family Provider Family Medicine; PCP Physician Assistant Medical
DX: I48.91 Unspecified atrial fibrillation (principal); R06.02 Shortness of breath; Z20.822 Contact with and (suspected) exposure to COVID-19
CPT/HCPCS: 36415; 71045; 80053; 80162; 82550; 82553; 83690; 83880; 84484; 85025; 85610; 85730; 87635; 93005; 93010; 96374; 99284; C9803; J1940

== ENCOUNTER → 2020-12-13 14:53 | Outpatient (CLI) | payer MEDICARE, OTHER, SELFPAY ==
--- NOTE | 2020-12-13 | DI.ECHO.S_ITS ---
[place] +---------+ Hospital +---------+ : : [address] : : : : [id number] : : : : Phone: [phone] Echocardiogram Report + + :Name: REJI PEACE Study Date: 12/13/2020 Height: 62 in : :[facility] ReadingLocation: Weight: 130 lb : : Gender: Female BSA: 1.6 m2 : :: 1935 Age: 85 yrs BP: 118/76 mmHg: :Reason For Study: ATRIAL FIBRILLATION : :Ordering Physician: SAMARA, : :ALBINA Performed By: Nakita Alejandre : :Referring: ALBINA PASCUAL : + + Interpretation Summary The patient was in atrial fibrillation with heart rates between 90-105 bpm during the exam. The left ventricle is normal in size and wall thickness. Left ventricular ejection fraction is estimated to be 40 +/- 5%. Previous LVEF 25 to 30%. The IVC is of normal diameter and collapses greater than 50% with a sniff. This suggests a low right atrial pressure of 3 mm Hg. Procedure: A two-dimensional transthoracic echocardiogram with color flow and Doppler was performed in limited views only to assess ejection fraction. The study quality was technically adequate. Comparison is made with the echocardiogram of 09/10/2020. The patient was in atrial fibrillation with heart rates between 90-105 bpm during the exam. Left Ventricle: The left ventricle is normal in size and wall thickness. Left ventricular ejection fraction is estimated to be 40 +/- 5%. There is mild to moderate global hypokinesis of the left ventricle. Right Ventricle: The right ventricle is normal in size and function. Atria: Both atria are severely dilated. Both atria have remained unchanged in size since the prior echo exam. Great Vessels: The IVC is of normal diameter and collapses greater than 50% with a sniff. This suggests a low right atrial pressure of 3 mm Hg. Pericardium/ Pleura There is no pericardial effusion. There is no pleural effusion. MMode/2D Measurements & Calculations LVIDd: 4.2 cm LA A2 area: 23.5 cm2 LVIDs: 3.3 cm LA A4 area: 27.0 cm2 FS: 21.4 % LA length (vol): 6.9 cm EPSS: 0.86 cm LA vol: 78.6 ml IVSd: 0.81 cm LA vol index: 49.4 ml/m2 LVPWd: 0.81 cm LV bennett. diameter/BSA (cm/m^2): 2.7 LV sys. diameter/BSA (cm/m^2): 2.1 RA long axis: 6.9 cm RVD1 (basal): 3.0 cm RA area: 26.3 cm2 TAPSE: 1.7 cm RA vol: 85.2 ml RA : 53.5 ml/m2 IVC diam: 0.88 cm Reading Physician:05:58 PM
== END ==
PROVIDERS: Family Provider Family Medicine; PCP Physician Assistant Medical; Referring Provider Internal Medicine Cardiovascular Disease; Visit Provider Internal Medicine Cardiovascular Disease
DX: I48.20 Chronic atrial fibrillation, unspecified (principal)
CPT/HCPCS: 93307

== ENCOUNTER 2021-01-26 21:12 | Emergency (ER) | payer MEDICARE, OTHER, SELFPAY ==
--- NOTE | 2021-01-26 21:22 | ED_ITS ---
HPI - Extremity Problem General Chief complaint: Skin/Abscess/Foreign Body Stated complaint: possible infection left lower leg Time Seen by Provider: 01/26/21 21:20 Source: patient and family ([id number] at bedside.) Mode of arrival: Ambulatory Limitations: no limitations History of Present Illness HPI Narrative: This is an 85-year-old female comes for possible infection of her left lower leg. Patient had a shave biopsy that was found to have a actinic keratosis on December 22. She states it has never healed she developed redness shortly thereafter and the general area. She has had chronic swelling in her left lower extremity for many years but has not appreciated any new swelling. She states the site has become more painful. She was seen at would be last week and had a dressing that she was told would bruits placed on it. She did take cephalexin which she completed in the last several weeks but nothing since then. She has an appointment with wound care on February 01. Patient has a history of atrial fibrillation and is on warfarin. She does not have any known diabetes. She has never had any issues with skin infections in the past. She denies fevers or chills. No chest pain or shortness of breath, no nausea or vomiting. No GI or urinary symptoms. No numbness, tingling or we akness. Related Data Home Medications Medication Instructions Recorded Confirmed amitriptyline 25 mg tablet 25 mg PO BEDTIME 09/13/20 09/13/20 digoxin 125 mcg (0.125 mg) tablet 125 mcg PO DAILY 09/13/20 09/13/20 furosemide 40 mg tablet 40 mg PO DAILY 09/13/20 09/13/20 metoprolol succinate 100 mg 100 mg PO BID 09/13/20 09/14/20 tablet,extended release 24 hr warfarin 2.5 mg tablet See Rx Instructions .ROUTE .COMPLEX 09/13/20 09/13/20 losartan 25 mg tablet 25 mg PO DAILY 09/14/20 09/14/20 Previous Rx's Medication Instructions Recorded clindamycin HCl 300 mg capsule 300 mg PO Q6H #40 cap 01/26/21 Allergies Allergy/AdvReac Type Severity Reaction Status Date / Time diltiazem Allergy Verified 01/26/21 21:35 gabapentin Allergy Depression Verified 09/13/20 15:06 Review of Systems Review of Systems ROS Unobtainable: All systems reviewed & are unremarkable except as noted in HPI and below Patient History Medical History Atrial fibrillation Congestive heart failure Social History Smoking Status: Never smoker Smoking Status: Never smoker alcohol intake frequency: 0-2 drinks per day Substance Use Type: does not use Exam Narrative Exam Narrative: GENERAL: Alert and oriented x three, female in mild distress. HEENT: Head normocephalic, atraumatic, EOMI, pupils reactive, face symmetric, moist mucous membranes NECK: Supple, full range of motion CARDIOVASCULAR: Regular rate and rhythm without murmurs, rubs or gallops. RESPIRATORY: Breath sounds equal bilaterally, no wheezes rales or rhonchi. ABDOMEN: Soft, nontender. Normoactive bowel sounds all 4 quadrants. No guarding or rebound, rigidity, no mass EXTREMITIES: Normal range of motion, no clubbing. Patient has edema of left lower extremity comparison the right which she and her [id number] state is longstanding. She has some erythema extending about 6 cm around the area of the wound. Patient has a wound on her left anterior martinez with some purulent discharge into the subcutaneous tissue. I am not able to visualize any bone the area is tender right at the site but the surrounding area is minimally tender. Patient has pulses equal bilateral lower extremities. NEUROLOGICAL: Cranial nerves II through XII grossly intact. Moving all extremities SKIN: Warm, dry, no petechiae, no rashes or lesions otherwise appreciated. Initial Vital Signs Initial Vital Signs: Vital Signs Temperature 97.9 F 01/26/21 21:35 Pulse Rate 81 01/26/21 21:35 Respiratory Rate 16 01/26/21 21:35 Blood Pressure 125/84 01/26/21 21:35 Pulse Oximetry 99 01/26/21 21:35 Course Orders Ordered: ED Orders 01/26/21 21:25 Basic Metabolic Panel Stat Complete Blood Count AUTO DIFF Stat Prothrombin Time INR Stat Wound Culture and Gram Stain Stat 01/26/21 21:43 XR tibia fibula LT 2V Stat 01/26/21 21:53 Blood Culture Stat Discontinued Medications Clindamycin Phosphate (Cleocin) 900 mg in 50 mls @ 50 mls/hr IV NOW ONE Stop: 01/26/21 22:45 Last Infusion: 01/26/21 23:09 Dose: 0 mls/hr Documented by: Admin: 01/26/21 22:01 Dose: 50 mls/hr Documented by: [place] Vital Signs Vital signs: Vital Signs - 8 hr 01/26/21 21:35 01/26/21 23:10 Temperature 97.9 F Pulse Rate 81 68 Respiratory Rate 16 22 Blood Pressure 125/84 115/85 Pulse Oximetry 99 98 MDM - Extremity (Nontraumatic) Lab Data Result diagrams: 01/26/21 21:25 01/26/21 21:25 Labs: Lab Results 01/26/21 01/26/21 01/26/21 Range/Units 21:25 21:25 21:25 WBC 10.4 (4.5-11.0) X10^3/uL RBC 4.63 (4.0-5.2) X10^6/uL Hgb 14.1 (12.0-16.0) g/dL Hct 42.2 (36-46) % MCV 91.0 (80-100) fL MCH 30.4 (26-34) PG MCHC 33.4 (30-36) % RDW 15.3 H (11.6-14.8) % Plt Count 208 (150-400) X10^3/uL Neut % (Auto) 53.6 (50-75) % Lymph % (Auto) 27.2 (25-40) % [place] % (Auto) 13.9 (3-14) % Eos % (Auto) 4.0 (2-4) % Baso % (Auto) 1.3 (0-2) % Neut # (Auto) 5600 (5972-2795) /uL Lymph # (Auto) 2800 (6808-4498) /uL [place] # (Auto) 1400 H (0-900) /uL Eos # (Auto) 400 (0-450) /uL Baso # (Auto) 100 (0-100) /uL PT 33.5 H (10.1-12.7) SECONDS INR 2.9 H (0.9-1.3) Sodium 140 (137-145) mmol/L Potassium 3.8 (3.4-5.1) mmol/L Chloride 100 (98-107) mmol/L Carbon Dioxide 30 (22-32) mmol/L BUN 29 H (7-17) mg/dL Creatinine 1.31 H (0.52-1.04) mg/dL Estimated GFR 38.6 L (>60) mL/min BUN/Creatinine Ratio 22.1 H (6-22) Glucose 104 (80-110) mg/dL Calcium 10.7 H (8.4-10.2) mg/dL Imaging Data Extremity x-ray #1: Radiologist's Impression: [address] [address] XRay Report Signed Patient: Nadia Da Silva MR#: [id number] : 1935 Acct:[id number] Age/Sex: 85 / F Date of Service: 01/26/21 Loc: ED Accession Number: [id number] ?? Procedure: XR tibia fibula LT 2V Ordering Provider: Summer Malhotra D.O. PROCEDURE:? XR TIBIA FIBULA LT 2V ? INDICATIONS:? nonhealing wound anterior martinez after shave biopsy x 1 month ? TECHNIQUE:? 2 views of the tibia and fibula were acquired.? ? COMPARISON:? None. ? FINDINGS:? ? Bones:? No fractures or dislocations.? No suspicious bony lesions.? ? Soft tissues:? No suspicious soft tissue calcifications or masses.? ? IMPRESSION:? No acute fracture. No osseous lesion. If symptoms and/or clinical suspicion for pathology persist, further assessment with repeat, or advanced imaging (e.g., CT, MRI, or bone scan) may be helpful for further assessment. ? ? Dictated by: Ashlyn Huitron M.D. on 01/26/2021 at 21:55 ? ? Approved by: Ashlyn Huitron M.D. on 01/26/2021 at 21:55?? [facility] Narrative Medical decision making narrative: Patient has wound on her right leg x 1 month with no improvement and increasing pain with purulent discharge. She does not appear to be septic. Plan for oral antibiotics with wound care appointment already in place. Wound care and patient to return for any new or worsening sympoms. Discharge Plan Departure Patient Disposition: Home Clinical Impression: Postprocedural wound infection Wound of left lower extremity Qualifiers: Encounter type: initial encounter Qualified Code(s): S81.802A - Unspecified open wound, left lower leg, initial encounter Instructions: DI for Wound Infection Activity Restrictions/Additional Instructions: Follow up with wound care unsure appointment on February 01 I think this will be the most helpful thing for you. It was noted on your labs that your renal function was decreased from prior in August 2020. Follow up with your physician for recheck if you and they were not already aware of this. Wound culture is pending and will likely result in 48-72 hours. If there is resistance to the antibiotic showed today he would be contacted. Take antibiotics until completely gone. Prescription sent to [facility] in [place]. Wound Care: Keep wound(s) clean and dry. Wash daily with soap and water only, then pat dry. Do not use over the counter products (alcohol or peroxide)on the wounds unless instructed by a physician. If wound condition worsens (increased/expanding redness, developing fluid blisters, or worsening pain), either contact your doctor for an urgent re- assessment , or return to the Emergency Department. You may continue to take Ultram at home as prescribed. You can take Tylenol up to a 1000 mg every 8 hours with this medication. Please return for fevers, new or worsening leg pain, worsening drainage, spreading redness, swelling, nausea or vomiting, chest pain or shortness of breath or other new or concerning symptoms. Prescriptions: New clindamycin HCl 300 mg capsule 300 mg PO Q6H Qty: 40 RF: 0 No Action furosemide 40 mg Tablet 40 mg PO DAILY RF: 0 metoprolol succinate 100 mg tablet extended release 24 hr 100 mg PO BID RF: 0 warfarin 2.5 mg tablet See Rx Instructions .ROUTE .COMPLEX RF: 0 digoxin 125 mcg (0.125 mg) tablet 125 mcg PO DAILY RF: 0 amitriptyline 25 mg Tablet 25 mg PO BEDTIME RF: 0 losartan 25 mg Tablet 25 mg PO DAILY RF: 0 Referrals: Marsha Colin PA-C [Primary Care Provider] -
[2021-01-26 21:35] VITALS: BP 125/84; PULSE 81; RESP 16; TEMP 36.6; O2SAT 99; BMI 23.8
--- NOTE | 2021-01-26 21:43 | DI.RAD.S_ITS ---
PROCEDURE: XR TIBIA FIBULA LT 2V INDICATIONS: nonhealing wound anterior martinez after shave biopsy x 1 month TECHNIQUE: 2 views of the tibia and fibula were acquired. COMPARISON: None. FINDINGS: Bones: No fractures or dislocations. No suspicious bony lesions. Soft tissues: No suspicious soft tissue calcifications or masses. IMPRESSION: No acute fracture. No osseous lesion. If symptoms and/or clinical suspicion for pathology persist, further assessment with repeat, or advanced imaging (e.g., CT, MRI, or bone scan) may be helpful for further assessment. Dictated by: Ashlyn Huitron M.D. on 01/26/2021 at 21:55 Approved by: Ashlyn Huitron M.D. on 01/26/2021 at 21:55
[2021-01-26 21:52] LABS: INR 2.9 (0.9-1.3); Prothrombin Time 33.5 SECONDS (10.1-12.7)
[2021-01-26 21:56] LABS: Add Manual Diff / Slide Review NO; Basophils Absolute Auto 100 /uL (0-100); Basophils Percent Auto 1.3 % (0-2); Eosinophils Absolute Auto 400 /uL (0-450); Hematocrit 42.2 % (36-46); Hemoglobin 14.1 g/dL (12.0-16.0); Lymphocytes Absolute Auto 2800 /uL (1100-4500); Lymphocytes Percent Auto 27.2 % (25-40); Mean Corpuscular HGB Conc 33.4 % (30-36); Mean Corpuscular Hemoglobin 30.4 PG (26-34); Monocytes Absolute Auto 1400 /uL (0-900); Monocytes Percent Auto 13.9 % (3-14); Neutrophils Absolute Auto 5600 /uL (1500-7000); Neutrophils Percent Auto 53.6 % (50-75); Platelet Count 208 X10^3/uL (150-400); Red Blood Cell Count 4.63 X10^6/uL (4.0-5.2); Red Cell Distribution Width 15.3 % (11.6-14.8); White Blood Cell Count 10.4 X10^3/uL (4.5-11.0)
[2021-01-26 21:57] LABS: BUN Creatinine Ratio 22.1 (6-22); Blood Urea Nitrogen 29 mg/dL (7-17); Calcium 10.7 mg/dL (8.4-10.2); Carbon Dioxide 30 mmol/L (22-32); Chloride 100 mmol/L (98-107); Estimated Glomerular Filt Rate 38.6 mL/min (>60); Glucose 104 mg/dL (80-110); HEMOLYSIS < 15 (0-50); Potassium 3.8 mmol/L (3.4-5.1); Sodium 140 mmol/L (137-145)
[2021-01-26] MEDS: CLINDAMYCIN 900 MG/50 ML PIGGYBACK 50 MG IV (22:01)
[2021-01-26 23:10] VITALS: BP 115/85; PULSE 68; RESP 22; O2SAT 98
== END 2021-01-26 23:20 | disposition home or self-care (01) ==
PROVIDERS: Emergency Provider Emergency Medicine; Family Provider Family Medicine; PCP Physician Assistant Medical
DX: T81.49XA Infection following a procedure, other surgical site, initial encounter (principal); B96.20 Unspecified Escherichia coli [E. coli] as the cause of diseases classified elsewhere; B96.1 Klebsiella pneumoniae [K. pneumoniae] as the cause of diseases classified elsewhere; S81.802A Unspecified open wound, left lower leg, initial encounter
CPT/HCPCS: 36415; 73590; 80048; 85025; 85610; 87040; 87070; 87077; 87186; 87205; 96365; 99284

== ENCOUNTER 2021-05-09 15:33 | Emergency (ER) | payer MEDICARE, OTHER, SELFPAY ==
[2021-05-09 15:34] VITALS: BMI 25.4
--- NOTE | 2021-05-09 15:38 | DI.CT.S_ITS ---
PROCEDURE: CT HEAD/BRAIN WO CON INDICATIONS: Fall hit head on thinners TECHNIQUE: Noncontrast 4.5 mm thick angled axial sections acquired from the foramen magnum to the vertex, with coronal and sagittal reformats. For radiation dose reduction, the following was used: automated exposure control, adjustment of mA and/or kV according to patient size. COMPARISON: None. FINDINGS: Image quality: Excellent. CSF spaces: Basal cisterns are patent. No extra-axial fluid collections. The ventricles are symmetric in size and shape. Brain: No intracranial bleeds or masses. There is cerebral volume loss for age, with resultant ventricular and sulcal prominence. There are periventricular and deep white matter chronic small vessel ischemic changes. There is intracranial internal carotid artery atherosclerosis. Skull and face: Calvarium and visualized facial bones appear intact, without suspicious lesions. Sinuses: Visualized sinuses and mastoids are clear. IMPRESSION: No acute intracranial hemorrhage is seen. No acute intracranial process is seen. Note is made of age-appropriate brain parenchymal volume loss and chronic small vessel ischemic changes. Dictated by: Keith Batista M.D. on 05/09/2021 at 15:11 Approved by: Keith Batista M.D. on 05/09/2021 at 15:13
[2021-05-09 16:50] LABS: COVID19 -Nasal RAPID Negative (Negative)
[2021-05-09 17:04] VITALS: BP 151/96; PULSE 92; RESP 18; O2SAT 97
--- NOTE | 2021-05-09 17:06 | ED.FALL ---
HPI - Fall General Chief Complaint: Trauma Stated Complaint: Fall hit head on thinners Time Seen by Provider: 05/09/21 16:52 History of Present Illness HPI Narrative: Patient is an 85-year-old female history of atrial fibrillation on digoxin and warfarin who presents today after ground level fall yesterday. She falls frequently. He typically walks with a walker she was bending down to get the Grabber to help her grabbed thinks when she fell backwards hitting her head. She did not lose consciousness. She has not had any new numbness tingling weakness nausea or vomiting. She denies any headache. She is having some back pain in her kidney area. She has no painful or frequent urination. For has been was just in the emergency department for evaluation he tested positive for COVID Related Data Home Medications Medication Instructions Recorded Confirmed amitriptyline 25 mg tablet 25 mg PO BEDTIME 09/13/20 09/13/20 digoxin 125 mcg (0.125 mg) tablet 125 mcg PO DAILY 09/13/20 09/13/20 furosemide 40 mg tablet 40 mg PO DAILY 09/13/20 09/13/20 metoprolol succinate 100 mg 100 mg PO BID 09/13/20 09/14/20 tablet,extended release 24 hr warfarin 2.5 mg tablet See Rx Instructions .ROUTE .COMPLEX 09/13/20 09/13/20 losartan 25 mg tablet 25 mg PO DAILY 09/14/20 09/14/20 Previous Rx's Medication Instructions Recorded clindamycin HCl 300 mg capsule 300 mg PO Q6H #40 cap 01/26/21 tramadol 50 mg tablet 50 mg PO Q8H PRN #10 tab 05/09/21 Allergies Allergy/AdvReac Type Severity Reaction Status Date / Time diltiazem Allergy Verified 01/26/21 21:35 gabapentin Allergy Depression Verified 09/13/20 15:06 Review of Systems Review of Systems Narrative: GENERAL: Denies chills, fatigue, malaise, fever, sweats, travel HEENT: Denies sinus pain, ear pain, sore throat, difficulty swallowing, neck pain RESPIRATORY: Denies dyspnea, cough, wheezing, hemoptysis, sputum. CARDIOVASCULAR: See HPI GASTROINTESTINAL: Denies nausea, vomiting, abdominal pain, diarrhea, constipation, melena. : Denies dysuria, frequency, incontinence, hematuria, urinary retention, flank pain. MUSCULOSKELETAL: Denies weakness, joint pain, or bony pain SKIN: No rash, no erythema, no pruritus NEUROLOGIC: See HPI PSYCHIATRIC: No concerning psychosocial issues. 12 point review of systems is negative except for those stated above and HPI Patient History Medical History Atrial fibrillation Congestive heart failure Social History Smoking Status: Never smoker Smoking Status: Never smoker alcohol intake frequency: 0-2 drinks per day Substance Use Type: does not use Exam Initial Vital Signs Initial Vital Signs: Vital Signs Pulse Rate 92 H 05/09/21 17:04 Respiratory Rate 18 05/09/21 17:04 Blood Pressure 151/96 H 05/09/21 17:04 Pulse Oximetry 97 05/09/21 17:04 GENERAL: 85-year-old female appears older than stated age HEENT: Head atraumatic,EOMI, pupils reactive, face symmetric, moist mucous membranes CARDIOVASCULAR: Regular rate and rhythm without murmurs, rubs or gallops. RESPIRATORY: Breath sounds equal bilaterally, no wheezes rales or rhonchi. ABDOMEN: Soft, nontender. Normoactive bowel sounds all 4 quadrants. No guarding or rebound. BACK: Mild thoracic pain no vertebral tenderness or step-off : No CVA tenderness EXTREMITIES: Normal range of motion, no clubbing or edema. Neurovascularly intact NEUROLOGICAL: Alert and oriented x4.N SKIN: Warm, dry, no laceration, no petechiae, no rashes or lesions. Course Orders Ordered: ED Orders 05/09/21 15:38 CT head/brain wo con Stat 05/09/21 16:00 COVID19 -Nasal swab/Pre-Proc Stat 05/09/21 17:24 XR thoracic spine 3V Stat 05/09/21 18:05 Urine Microscopic Stat Vital Signs Vital signs: Vital Signs - 8 hr 05/09/21 17:04 05/09/21 18:33 Pulse Rate 92 H 98 H Respiratory Rate 18 16 Blood Pressure 151/96 H 132/87 Pulse Oximetry 97 97 MDM - Fall Lab Data Labs: Lab Results 05/09/21 05/09/21 Range/Units 16:00 18:05 Urine RBC None seen (0-5/HPF) Urine WBC 5-10/hpf H (0-5/HPF) Ur Squamous Epith Cells 10-30 /hpf H (0-5/HPF) Urine Bacteria Many (>30) H (None) Ur Culture Indicated? Cult not indicated SARS-CoV-2 (PCR) Negative (Negative) Urine Dip Bedside Urine Glucose Negative Bedside Urine Bilirubin - Negative Bedside Urine Ketone - Negative Urine Specific [place] 1.020 Bedside Urine Occult Blood +/- Bedside Urine pH 6.0 Bedside Urine Protein +/- 15 Bedside Urine Urobilinogen - Negative Bedside Urine Nitrite - Negative Bedside Urine Leukocytes - Negative Esterase Imaging Data CT scan - head: Radiologist's Impression: PROCEDURE:? CT HEAD/BRAIN WO CON ? INDICATIONS:? Fall hit head on thinners ? TECHNIQUE:? Noncontrast 4.5 mm thick angled axial sections acquired from the foramen magnum to the vertex, with coronal and sagittal reformats.? For radiation dose reduction, the following was used:? automated exposure control, adjustment of mA and/or kV according to patient size.? ? COMPARISON:? None. ? FINDINGS:? Image quality:? Excellent.? ? CSF spaces:? Basal cisterns are patent.? No extra-axial fluid collections.? The ventricles are symmetric in size and shape.? ? Brain:? No intracranial bleeds or masses.? There is cerebral volume loss for age, with resultant ventricular and sulcal prominence.? There are periventricular and deep white matter chronic small vessel ischemic changes.? There is intracranial internal carotid artery atherosclerosis.? ? Skull and face:? Calvarium and visualized facial bones appear intact, without suspicious lesions.? ? Sinuses:? Visualized sinuses and mastoids are clear.? IMPRESSION:? No acute intracranial hemorrhage is seen.? ? No acute intracranial process is seen.? ? Note is made of age-appropriate brain parenchymal volume loss and chronic small vessel ischemic changes. ? ? Dictated by: Keith Batista M.D. on 05/09/2021 at 15:11 ? ? Extremity x-ray #1: Radiologist's Impression: PROCEDURE:? XR THORACIC SPINE 3V ? INDICATIONS:? Trauma, fall ? TECHNIQUE:? 3 views of the thoracic spine were acquired.? ? COMPARISON:? None. ? FINDINGS:? ? Suspected acute T11 compression deformity with approximately 50% height loss.? No evidence of an additional compression fracture.? Alignment is normal.? ? ? IMPRESSION:? Suspected acute T11 compression fracture.? ? ? Dictated by: Enio Ulloa M.D. on 05/09/2021 at 17:49? MDM Narrative Medical decision making narrative: Patient overall appears well. She is tender in her midline x-ray does confirm an acute T11 compression fracture. She does not have UTI. Discharge Plan Departure Patient Disposition: Home Clinical Impression: Compression fracture of T11 vertebra Instructions: Vertebral Compression Fracture Activity Restrictions/Additional Instructions: *You have been diagnosed with T11 compression fracture *What to do: Fortunately you do not have COVID he has had a new CT scan is negative. However you do have a fracture in her back. This should heal without any intervention. *Continue to take medications as directed--> SENT TO [facility] Tramadol 50 mg every 6 hours if needed for [id number] pain *Follow up with your primary care provider in 2-3 days or call [phone] Call orthopedics to schedule follow-up in 1-2 weeks *Return to ER if you should have increasing pain increasing weakness, change in bowel or bladder habits, increasing falls or new, worsening or concerning symptoms Prescriptions: New tramadol 50 mg tablet 50 mg PO Q8H PRN (Reason: pain) Qty: 10 0RF No Action furosemide 40 mg Tablet 40 mg PO DAILY 0RF metoprolol succinate 100 mg tablet extended release 24 hr 100 mg PO BID 0RF Label Comments: TAKE ONE TABLET BY MOUTH TWICE DAILY warfarin 2.5 mg tablet See Rx Instructions .ROUTE .COMPLEX 0RF Label Comments: take 2.5mg (1 tablet) by mouth on Sunday, Sunday, Sunday, Sunday, and Sunday, and 1.25mg (12 tablet) on Sunday and Rx Instructions: take 2.5mg (1 tablet) by mouth on Sunday, Sunday, Sunday, Sunday, and Sunday, and 1.25mg (12 tablet) on Sunday and digoxin 125 mcg (0.125 mg) tablet 125 mcg PO DAILY 0RF Label Comments: TAKE ONE TABLET BY MOUTH ONE TIME DAILY amitriptyline 25 mg Tablet 25 mg PO BEDTIME 0RF losartan 25 mg Tablet 25 mg PO DAILY 0RF clindamycin HCl 300 mg capsule 300 mg PO Q6H Qty: 40 0RF Referrals: Marsha Colin PA-C [Primary Care Provider] -
--- NOTE | 2021-05-09 17:24 | DI.RAD.S_ITS ---
PROCEDURE: XR THORACIC SPINE 3V INDICATIONS: Trauma, fall TECHNIQUE: 3 views of the thoracic spine were acquired. COMPARISON: None. FINDINGS: Suspected acute T11 compression deformity with approximately 50% height loss. No evidence of an additional compression fracture. Alignment is normal. IMPRESSION: Suspected acute T11 compression fracture. Dictated by: Enio Ulloa M.D. on 05/09/2021 at 17:49 Approved by: Enio Ulloa M.D. on 05/09/2021 at 17:50
[2021-05-09 18:31] LABS: Bacteria Urine Many (>30); Culture Indicated Urine Cult Not Indicated; RBC Urine None Seen (0-5/HPF); Squamous Epithelial Cell Urine 10-30 /HPF (0-5/HPF); WBC Urine 5-10/HPF (0-5/HPF)
[2021-05-09 18:33] VITALS: BP 132/87; PULSE 98; RESP 16; O2SAT 97
== END 2021-05-09 18:33 | disposition home or self-care (01) ==
PROVIDERS: Emergency Provider Emergency Medicine; Family Provider Family Medicine; PCP Physician Assistant Medical
DX: S22.089A Unspecified fracture of T11-T12 vertebra, initial encounter for closed fracture (principal); W18.30XA Fall on same level, unspecified, initial encounter; Z91.81 History of falling; Z79.01 Long term (current) use of anticoagulants; Z20.822 Contact with and (suspected) exposure to COVID-19
CPT/HCPCS: 70450; 72072; 81003; 81015; 87635; 99284; C9803

== ENCOUNTER 2021-05-12 04:32 | Inpatient (IN) | payer MEDICARE, OTHER, SELFPAY ==
[2021-05-12] VITALS (32 sets, daily range): BP systolic 93–173; BP diastolic 48–102; PULSE 62–130; RESP 13–28; TEMP 36.2–37.3; O2SAT 87–99; BMI 25.5
--- NOTE | 2021-05-12 04:45 | DI.RAD.S_ITS ---
PROCEDURE: XR CHEST 1V INDICATIONS: cough, sob, covid exposure TECHNIQUE: One view of the chest was acquired. COMPARISON: [facility], CR, XR CHEST 1V, 09/13/2020, 15:27. FINDINGS: Surgical changes and devices: None. Lungs and pleura: Mild diffuse reticulonodular pulmonary opacity. No pleural effusions or pneumothorax. Mediastinum: Mediastinal contours appear normal. Heart size is enlarged. Bones and chest wall: No suspicious bony lesions. Overlying soft tissues appear unremarkable. IMPRESSION: Mild atelectasis versus atypical pneumonia. Dictated by: Ashlyn Huitron M.D. on 05/12/2021 at 8:06 Approved by: Ashlyn Huitron M.D. on 05/12/2021 at 8:08
--- NOTE | 2021-05-12 04:46 | ED.SOB ---
HPI - SOB/Dyspnea <Summer Malhotra, DO - Last Filed: 05/14/21 18:42> General Chief Complaint: Shortness of Breath/Dyspnea Stated Complaint: Difficulty breathing Time Seen by Provider: 05/12/21 04:32 Source: EMS Mode of arrival: EMS Limitations: no limitations History of Present Illness HPI Narrative: This is an 85-year-old female who comes emergency department with complaint of shortness of breath. Patient states she had a fall this had right-sided back/rib pain since and was diagnosed with a T11 compression fracture. Her 's currently being hospitalized here locally for which she describes as weakness, UTI and positive for coronavirus. Has increasing shortness of breath, cough which she describes as being productive but clear. She denies fevers or chills. She has pain in her chest when she coughs but not otherwise. She denies nausea or vomiting. No major changes with bowel movements or urination. She denies any swelling in her extremities. She does have a history of atrial fibrillation is anticoagulated on Coumadin and takes amiodarone as well. She has been offered ablation but states that she politely refused does not want or procedures. Patient denies any history of COPD. Remote tobacco abuse, no alcohol or illicit. She and her were living independently better in process of transferring to an adult independent living facility. Related Data Home Medications Medication Instructions Recorded Confirmed amitriptyline 25 mg tablet 25 mg PO BEDTIME 09/13/20 05/12/21 furosemide 40 mg tablet 40 mg PO DAILY 09/13/20 05/12/21 metoprolol succinate 100 mg 100 mg PO BID 09/13/20 05/12/21 tablet,extended release 24 hr warfarin 2.5 mg tablet See Rx Instructions .ROUTE .COMPLEX 09/13/20 05/12/21 losartan 25 mg tablet 25 mg PO DAILY 09/14/20 05/12/21 amiodarone 200 mg tablet 200 mg PO DAILY 05/12/21 05/12/21 Previous Rx's Medication Instructions Recorded levofloxacin 500 mg tablet 500 mg PO DAILY #3 tab 05/14/21 lidocaine 5 % topical patch 1 ea TOPICAL DAILY #10 ea 05/14/21 oxycodone-acetaminophen 5 mg-325 1 tab PO Q4H PRN #14 tab 05/14/21 mg tablet tramadol 50 mg tablet 50 mg PO Q8H PRN #10 tab 05/14/21 Allergies Allergy/AdvReac Type Severity Reaction Status Date / Time diltiazem Allergy Verified 01/26/21 21:35 gabapentin Allergy Depression Verified 09/13/20 15:06 Review of Systems <Summer Malhotra DO - Last Filed: 05/14/21 18:42> Review of Systems ROS Unobtainable: All systems reviewed & are unremarkable except as noted in HPI and below Patient History <Summer Malhotra DO - Last Filed: 05/14/21 18:42> Medical History Atrial fibrillation Congestive heart failure Social History marital status: household members: spouse Smoking Status: Never smoker alcohol intake: former Smoking Status: Never smoker alcohol intake frequency: 0-2 drinks per day Substance Use Type: does not use Exam <Summer Malhotra DO - Last Filed: 05/14/21 18:42> Narrative Exam Narrative: GEN: well nourished, well appearing elderly female, alert and oriented x 3, patient appears to be in mild distress. HEENT: Atraumatic, pupils are equal round reactive to light, extraocular movements are intact, nares are clear, TMs are clear with no fluid, there is no conjunctival pallor. Throat is clear without any exudates, erythema, tonsillar enlargement or uvular deviation HEART: Tachycardic and irregularly irregular rate and rhythm without murmur, clicks, rubs. Pulses equal bilateral upper extremities. Trace edema bilateral lower extremities. LUNGS:Lungs clear to auscultation, no wheezes, rales, crackles, chest moves symmetrically. Patient has a wet, productive cough with sputum that is yellow discoloration and was able to given X braided sputum sample.. Patient is tender to palpation around the T11 on the right side of the chest wall posteriorly. No other bony tenderness appreciated. ABD:bowel sounds normal, soft, non-tender, no guarding, rebound, rigidity, no masses noted, no hepatosplenomegaly :No CVA tenderness MSCL: Non-tender, no muscle atrophy, patient has some chronic venous stasis changes bilateral lower extremities along with 2 open wounds 1 on each anterior martinez. NEURO:CN 2-12 intact, sensation normal Initial Vital Signs Initial Vital Signs: Vital Signs Temperature 98.8 F 05/12/21 04:40 Pulse Rate 130 H 05/12/21 04:40 Respiratory Rate 20 05/12/21 04:40 Blood Pressure 173/96 H 05/12/21 04:40 Pulse Oximetry 99 05/12/21 04:40 <Paddy Lopez MD - Last Filed: 05/12/21 12:14> Initial Vital Signs Initial Vital Signs: Vital Signs Temperature 98.8 F 05/12/21 04:40 Pulse Rate 130 H 05/12/21 04:40 Respiratory Rate 20 05/12/21 04:40 Blood Pressure 173/96 H 05/12/21 04:40 Pulse Oximetry 99 05/12/21 04:40 Scores <Summer Malhotra DO - Last Filed: 05/14/21 18:42> GCS Lovejoy coma scale eye opening: Spontaneous Eddie coma scale verbal response: Orientated Lovejoy coma scale motor response: Obey commands Lovejoy coma scale total score: 15 <Paddy Lopez MD - Last Filed: 05/12/21 12:14> GCS Eddie coma scale total score: 15 Course <Summer Malhotra DO - Last Filed: 05/14/21 18:42> Orders Ordered: Discontinued Medications Acetaminophen/Codeine Phosphate (Codeine/Acetaminophen 30/300 Tablet) 1 tab PO NOW ONE Stop: 05/12/21 04:46 Last Admin: 05/12/21 05:03 Dose: 1 tab Documented by: MAYTE Albuterol (Albuterol Hfa Mdi 60 Puff/8 Gm Inhaler) 2 puff INH NOW ONE Stop: 05/12/21 08:26 Last Admin: 05/12/21 10:19 Dose: Not Given Documented by: KBROTEM Albuterol (Albuterol Hfa Prepack) 1 box MISC NOW ONE Stop: 05/12/21 09:16 Last Admin: 05/12/21 09:20 Dose: 1 box Documented by: JFISAI Amiodarone HCl (Amiodarone 200 Mg Tablet) 200 mg PO DAILY MEHRAN Last Admin: 05/14/21 09:32 Dose: 200 mg Documented by: Admin: 05/13/21 09:58 Dose: 200 mg Documented by: Admin: 05/12/21 15:13 Dose: 200 mg Documented by: NESS Amitriptyline HCl (Amitriptyline 25 Mg Tablet) 25 mg PO BEDTIME [facility] Last Admin: 05/13/21 21:29 Dose: 25 mg Documented by: Admin: 05/12/21 21:03 Dose: 25 mg Documented by: JUDITH Dexamethasone (Dexamethasone 10 Mg/Ml Vial) 6 mg IV DAILY [facility] Last Admin: 05/14/21 09:32 Dose: 6 mg Documented by: Admin: 05/13/21 10:00 Dose: 6 mg Documented by: Admin: 05/12/21 15:10 Dose: 6 mg Documented by: NESS Furosemide (Furosemide 40 Mg/4 Ml Vial) 40 mg IV NOW ONE Stop: 05/12/21 06:09 Last Admin: 05/12/21 06:48 Dose: 40 mg Documented by: ORTIZ Furosemide (Furosemide 40 Mg Tablet) 40 mg PO DAILY [facility] Last Admin: 05/14/21 09:32 Dose: 40 mg Documented by: Admin: 05/13/21 10:00 Dose: 40 mg Documented by: COLLIN Guaifenesin (Guaifenesin Solution 100 Mg/5 Ml Udc) 100 mg PO Q4HR MEHRAN Stop: 05/13/21 17:00 Last Admin: 05/13/21 13:38 Dose: Not Given Documented by: Admin: 05/13/21 10:01 Dose: Not Given Documented by: Admin: 05/13/21 06:39 Dose: Not Given Documented by: Admin: 05/13/21 02:08 Dose: Not Given Documented by: Admin: 05/12/21 21:07 Dose: 100 mg Documented by: Admin: 05/12/21 16:41 Dose: 100 mg Documented by: NESS Ceftriaxone Sodium 2,000 mg/ (Sodium Chloride) 100 mls @ 200 mls/hr IV Q24H MEHRAN Stop: 05/16/21 15:14 Last Infusion: 05/13/21 17:53 Dose: 0 mls/hr Documented by: Admin: 05/13/21 14:17 Dose: 200 mls/hr Documented by: Infusion: 05/12/21 15:35 Dose: 200 mls/hr Documented by: Admin: 05/12/21 15:05 Dose: 200 mls/hr Documented by: NESS Azithromycin 500 mg/ Dextrose 250 mls @ 250 mls/hr IV Q24H [facility] Stop: 05/16/21 15:44 Last Infusion: 05/13/21 17:53 Dose: 0 mls/hr Documented by: Admin: 05/13/21 15:41 Dose: 175 mls/hr Documented by: Infusion: 05/12/21 17:27 Dose: 250 mls/hr Documented by: Admin: 05/12/21 16:27 Dose: 250 mls/hr Documented by: NESS Influenza Virus Vaccine (Influenza Hd Vaccine 0.7 Ml Syringe) 0.7 ml IM .ONCE ONE Stop: 05/13/21 08:01 Last Admin: 05/13/21 08:39 Dose: Not Given Documented by: COLLIN Lidocaine (Lidocaine Patch 1 Each Adh..Patch) 1 each TOP DAILY [facility] Last Admin: 05/14/21 11:21 Dose: 1 each Documented by: EZRA Losartan Potassium (Losartan 25 Mg Tablet) 50 mg PO DAILY [facility] Last Admin: 05/14/21 09:32 Dose: 50 mg Documented by: Admin: 05/13/21 09:59 Dose: 50 mg Documented by: Admin: 05/12/21 15:08 Dose: 50 mg Documented by: NESS Metoprolol Succinate (Metoprolol Er 50 Mg Tablet) 50 mg PO BID [facility] Last Admin: 05/14/21 09:32 Dose: 50 mg Documented by: Admin: 05/13/21 21:29 Dose: 50 mg Documented by: Admin: 05/13/21 09:58 Dose: 50 mg Documented by: Admin: 05/12/21 21:05 Dose: 50 mg Documented by: Admin: 05/12/21 15:07 Dose: 50 mg Documented by: NESS Potassium Chloride (Potassium Chloride 20 Meq Tab) 40 meq PO NOW ONE Stop: 05/12/21 06:09 Last Admin: 05/12/21 06:47 Dose: 40 meq Documented by: ORTIZ Potassium Chloride (Potassium Chloride 20 Meq Tab) 40 meq PO NOW MEHRAN Stop: 05/13/21 09:00 Last Admin: 05/13/21 10:14 Dose: 40 meq Documented by: COLLIN Tramadol HCl (Tramadol 50 Mg Tablet) 50 mg PO Q8H PRN PRN Reason: pain Last Admin: 05/12/21 21:03 Dose: 50 mg Documented by: JUDITH Tramadol HCl (Tramadol 50 Mg Tablet) 50 mg PO Q8H PRN PRN Reason: pain Last Admin: 05/14/21 11:20 Dose: 50 mg Documented by: Admin: 05/14/21 01:41 Dose: 50 mg Documented by: Admin: 05/13/21 10:15 Dose: 50 mg Documented by: COLLIN Warfarin Sodium (Warfarin 5 Mg Tablet) 2.5 mg PO SuMoWeFrSa@1700 [facility] Last Admin: 05/13/21 17:27 Dose: 2.5 mg Documented by: COLLIN Warfarin Sodium (Warfarin 1 Mg Tablet) 1.25 mg PO [facility] Last Admin: 05/12/21 16:37 Dose: 1.25 mg Documented by: NESS Warfarin Sodium (Warfarin 1 Mg Tablet) 1.25 mg PO TuTh@1700 [facility] Vital Signs Vital signs: Vital Signs - 8 hr 05/12/21 04:40 05/12/21 04:42 05/12/21 05:00 Temperature 98.8 F Pulse Rate 130 H 129 H 106 H Respiratory Rate 20 28 H 23 Blood Pressure 173/96 H Pulse Oximetry 99 98 98 05/12/21 05:30 05/12/21 06:00 05/12/21 06:30 Temperature Pulse Rate 96 H 92 H 94 H Respiratory Rate 14 13 14 Blood Pressure Pulse Oximetry 94 95 97 05/12/21 07:00 05/12/21 07:30 05/12/21 08:10 Temperature Pulse Rate 106 H 124 H 128 H Respiratory Rate 16 21 Blood Pressure Pulse Oximetry 98 97 95 05/12/21 08:30 05/12/21 08:35 05/12/21 08:36 Temperature Pulse Rate 109 H 105 H 105 H Respiratory Rate Blood Pressure 122/78 Pulse Oximetry 87 L 94 95 05/12/21 09:00 05/12/21 09:01 05/12/21 09:30 Temperature Pulse Rate 92 H 96 H 98 H Respiratory Rate Blood Pressure 109/50 L Pulse Oximetry 94 94 95 05/12/21 09:35 05/12/21 10:00 05/12/21 10:30 Temperature Pulse Rate 96 H 103 H 103 H Respiratory Rate 18 Blood Pressure 93/48 L 99/67 Pulse Oximetry 94 94 94 <Paddy Lopez MD - Last Filed: 05/12/21 12:14> Course Course Narrative: Care was assumed from Dr. Malhotra at change of shift. The patient arrives with dyspnea. Her was admitted 5 days ago with COVID. She fell while she was here with her , fracturing T11. She became ill herself 3 days ago. She is in the ER with dyspnea and cough. She denies headache, fever or sore throat. Evaluation revealed that she is positive for COVID. She is AFib. Her rate is variable from 80s to 120s. She has no associated chest pain. It is noted she has CHF. Chest x-ray is consistent with CHF and cardiomegaly, BNP is elevated. She was given Lasix 40 mg IV. She is not having fever chills. Initial O2 sats were in the mid 90s., Dr. August. He has agreed to admit the patient. When walking to the bathroom, O2 sats dropped to mid 80s with exertion. She is currently on 2 L nasal cannula O2 with O2 sats in mid 90s once again. In addition to COVID-19, she has AFib, and CHF. She has significant fatigue and myalgia. She has frequent cough, she does not currently complain of back pain after receiving T3. She is requiring oxygen. We attempted discharge, but she did not ambulate without significant drop in O2 sats. I contacted the hospitalist Dr Ybarra. He has agreed to admit the patient.Jayce LINDQUIST 05/12/21 @11:50. Orders Ordered: Discontinued Medications Acetaminophen/Codeine Phosphate (Codeine/Acetaminophen 30/300 Tablet) 1 tab PO NOW ONE Stop: 05/12/21 04:46 Last Admin: 05/12/21 05:03 Dose: 1 tab Documented by: MAYTE Albuterol (Albuterol Hfa Mdi 60 Puff/8 Gm Inhaler) 2 puff INH NOW ONE Stop: 05/12/21 08:26 Last Admin: 05/12/21 10:19 Dose: Not Given Documented by: TOD Albuterol (Albuterol Hfa Prepack) 1 box MISC NOW ONE Stop: 05/12/21 09:16 Last Admin: 05/12/21 09:20 Dose: 1 box Documented by: EZEKIEL Amiodarone HCl (Amiodarone 200 Mg Tablet) 200 mg PO DAILY [facility] Last Admin: 05/14/21 09:32 Dose: 200 mg Documented by: Admin: 05/13/21 09:58 Dose: 200 mg Documented by: Admin: 05/12/21 15:13 Dose: 200 mg Documented by: NESS Amitriptyline HCl (Amitriptyline 25 Mg Tablet) 25 mg PO BEDTIME [facility] Last Admin: 05/13/21 21:29 Dose: 25 mg Documented by: Admin: 05/12/21 21:03 Dose: 25 mg Documented by: JUDITH Dexamethasone (Dexamethasone 10 Mg/Ml Vial) 6 mg IV DAILY [facility] Last Admin: 05/14/21 09:32 Dose: 6 mg Documented by: Admin: 05/13/21 10:00 Dose: 6 mg Documented by: Admin: 05/12/21 15:10 Dose: 6 mg Documented by: NESS Furosemide (Furosemide 40 Mg/4 Ml Vial) 40 mg IV NOW ONE Stop: 05/12/21 06:09 Last Admin: 05/12/21 06:48 Dose: 40 mg Documented by: ORTIZ Furosemide (Furosemide 40 Mg Tablet) 40 mg PO DAILY [facility] Last Admin: 05/14/21 09:32 Dose: 40 mg Documented by: Admin: 05/13/21 10:00 Dose: 40 mg Documented by: COLLIN Guaifenesin (Guaifenesin Solution 100 Mg/5 Ml Udc) 100 mg PO Q4HR [facility] Stop: 05/13/21 17:00 Last Admin: 05/13/21 13:38 Dose: Not Given Documented by: Admin: 05/13/21 10:01 Dose: Not Given Documented by: Admin: 05/13/21 06:39 Dose: Not Given Documented by: Admin: 05/13/21 02:08 Dose: Not Given Documented by: Admin: 05/12/21 21:07 Dose: 100 mg Documented by: Admin: 05/12/21 16:41 Dose: 100 mg Documented by: NESS Ceftriaxone Sodium 2,000 mg/ (Sodium Chloride) 100 mls @ 200 mls/hr IV Q24H [facility] Stop: 05/16/21 15:14 Last Infusion: 05/13/21 17:53 Dose: 0 mls/hr Documented by: Admin: 05/13/21 14:17 Dose: 200 mls/hr Documented by: Infusion: 05/12/21 15:35 Dose: 200 mls/hr Documented by: Admin: 05/12/21 15:05 Dose: 200 mls/hr Documented by: NESS Azithromycin 500 mg/ Dextrose 250 mls @ 250 mls/hr IV Q24H [facility] Stop: 05/16/21 15:44 Last Infusion: 05/13/21 17:53 Dose: 0 mls/hr Documented by: Admin: 05/13/21 15:41 Dose: 175 mls/hr Documented by: Infusion: 05/12/21 17:27 Dose: 250 mls/hr Documented by: Admin: 05/12/21 16:27 Dose: 250 mls/hr Documented by: NESS Influenza Virus Vaccine (Influenza Hd Vaccine 0.7 Ml Syringe) 0.7 ml IM .ONCE ONE Stop: 05/13/21 08:01 Last Admin: 05/13/21 08:39 Dose: Not Given Documented by: COLLIN Lidocaine (Lidocaine Patch 1 Each Adh..Patch) 1 each TOP DAILY [facility] Last Admin: 05/14/21 11:21 Dose: 1 each Documented by: EZRA Losartan Potassium (Losartan 25 Mg Tablet) 50 mg PO DAILY [facility] Last Admin: 05/14/21 09:32 Dose: 50 mg Documented by: Admin: 05/13/21 09:59 Dose: 50 mg Documented by: Admin: 05/12/21 15:08 Dose: 50 mg Documented by: NESS Metoprolol Succinate (Metoprolol Er 50 Mg Tablet) 50 mg PO BID [facility] Last Admin: 05/14/21 09:32 Dose: 50 mg Documented by: Admin: 05/13/21 21:29 Dose: 50 mg Documented by: Admin: 05/13/21 09:58 Dose: 50 mg Documented by: Admin: 05/12/21 21:05 Dose: 50 mg Documented by: Admin: 05/12/21 15:07 Dose: 50 mg Documented by: NESS Potassium Chloride (Potassium Chloride 20 Meq Tab) 40 meq PO NOW ONE Stop: 05/12/21 06:09 Last Admin: 05/12/21 06:47 Dose: 40 meq Documented by: ORTIZ Potassium Chloride (Potassium Chloride 20 Meq Tab) 40 meq PO NOW MEHRAN Stop: 05/13/21 09:00 Last Admin: 05/13/21 10:14 Dose: 40 meq Documented by: COLLIN Tramadol HCl (Tramadol 50 Mg Tablet) 50 mg PO Q8H PRN PRN Reason: pain Last Admin: 05/12/21 21:03 Dose: 50 mg Documented by: JUDITH Tramadol HCl (Tramadol 50 Mg Tablet) 50 mg PO Q8H PRN PRN Reason: pain Last Admin: 05/14/21 11:20 Dose: 50 mg Documented by: Admin: 05/14/21 01:41 Dose: 50 mg Documented by: Admin: 05/13/21 10:15 Dose: 50 mg Documented by: COLLIN Warfarin Sodium (Warfarin 5 Mg Tablet) 2.5 mg PO SuMoWeFrSa@1700 [facility] Last Admin: 05/13/21 17:27 Dose: 2.5 mg Documented by: COLLIN Warfarin Sodium (Warfarin 1 Mg Tablet) 1.25 mg PO [facility] Last Admin: 05/12/21 16:37 Dose: 1.25 mg Documented by: NESS Warfarin Sodium (Warfarin 1 Mg Tablet) 1.25 mg PO TuTh@1700 [facility] Vital Signs Vital signs: Vital Signs - 8 hr 05/12/21 04:40 05/12/21 04:42 05/12/21 05:00 Temperature 98.8 F Pulse Rate 130 H 129 H 106 H Respiratory Rate 20 28 H 23 Blood Pressure 173/96 H Pulse Oximetry 99 98 98 05/12/21 05:30 05/12/21 06:00 05/12/21 06:30 Temperature Pulse Rate 96 H 92 H 94 H Respiratory Rate 14 13 14 Blood Pressure Pulse Oximetry 94 95 97 05/12/21 07:00 05/12/21 07:30 05/12/21 08:10 Temperature Pulse Rate 106 H 124 H 128 H Respiratory Rate 16 21 Blood Pressure Pulse Oximetry 98 97 95 05/12/21 08:30 05/12/21 08:35 05/12/21 08:36 Temperature Pulse Rate 109 H 105 H 105 H Respiratory Rate Blood Pressure 122/78 Pulse Oximetry 87 L 94 95 05/12/21 09:00 05/12/21 09:01 05/12/21 09:30 Temperature Pulse Rate 92 H 96 H 98 H Respiratory Rate Blood Pressure 109/50 L Pulse Oximetry 94 94 95 05/12/21 09:35 05/12/21 10:00 05/12/21 10:30 Temperature Pulse Rate 96 H 103 H 103 H Respiratory Rate 18 Blood Pressure 93/48 L 99/67 Pulse Oximetry 94 94 94 MDM - SOB/Dyspnea <Summer Malhotra, DO - Last Filed: 05/14/21 18:42> Lab Data Result diagrams: 05/14/21 05:28 05/14/21 05:28 Labs: Lab Results 05/12/21 05/12/21 05/12/21 Range/Units 04:55 05:23 05:23 WBC 11.4 H (4.5-11.0) X10^3/uL RBC 4.60 (4.0-5.2) X10^6/uL Hgb 13.9 (12.0-16.0) g/dL Hct 42.2 (36-46) % MCV 91.7 (80-100) fL MCH 30.3 (26-34) PG MCHC 33.0 (30-36) % RDW 14.2 (11.6-14.8) % Plt Count 129 L (150-400) X10^3/uL Neut % (Auto) 69.6 (50-75) % Lymph % (Auto) 12.5 L (25-40) % [place] % (Auto) 10.7 (3-14) % Eos % (Auto) 5.0 H (2-4) % Baso % (Auto) 2.2 H (0-2) % Neut # (Auto) 7900 H (0653-5512) /uL Lymph # (Auto) 1400 (7113-6841) /uL [place] # (Auto) 1200 H (0-900) /uL Eos # (Auto) 600 H (0-450) /uL Baso # (Auto) 300 H (0-100) /uL Plt Morphology Comment * RBC Morphology Normal morphology PT 20.4 H (10.1-12.7) SECONDS INR 1.8 H (0.9-1.3) APTT 37 H D (26.4-36.2) SECONDS Sodium (137-145) mmol/L Potassium (3.4-5.1) mmol/L Chloride (98-107) mmol/L Carbon Dioxide (22-32) mmol/L BUN (7-17) mg/dL Creatinine (0.52-1.04) mg/dL Estimated GFR (>60) mL/min BUN/Creatinine Ratio (6-22) Glucose (80-110) mg/dL Lactate (0.7-2.1) mmol/L Calcium (8.4-10.2) mg/dL Magnesium (1.6-2.3) mg/dL Total Bilirubin (0.2-1.3) mg/dL AST (14-36) IU/L ALT (<35) IU/L Alkaline Phosphatase (38-126) U/L Total Creatine Kinase (30-135) U/L CK-MB (CK-2) CK-MB (CK-2) Rel Index Troponin I (0.01-0.034) ng/mL NT-Pro-B Natriuret Pep (<450) pg/mL Total Protein (6.3-8.2) g/dL Albumin (3.5-5.0) g/dL Globulin (1.7-4.1) g/dL Albumin/Globulin Ratio (1.0-2.8) SARS-CoV-2 (PCR) Positive H (Negative) 05/12/21 05/12/21 Range/Units 05:23 05:23 WBC (4.5-11.0) X10^3/uL RBC (4.0-5.2) X10^6/uL Hgb (12.0-16.0) g/dL Hct (36-46) % MCV (80-100) fL MCH (26-34) PG MCHC (30-36) % RDW (11.6-14.8) % Plt Count (150-400) X10^3/uL Neut % (Auto) (50-75) % Lymph % (Auto) (25-40) % [place] % (Auto) (3-14) % Eos % (Auto) (2-4) % Baso % (Auto) (0-2) % Neut # (Auto) (7765-2559) /uL Lymph # (Auto) (2249-0859) /uL [place] # (Auto) (0-900) /uL Eos # (Auto) (0-450) /uL Baso # (Auto) (0-100) /uL Plt Morphology Comment RBC Morphology PT (10.1-12.7) SECONDS INR (0.9-1.3) APTT (26.4-36.2) SECONDS Sodium 141 (137-145) mmol/L Potassium 3.2 L (3.4-5.1) mmol/L Chloride 105 (98-107) mmol/L Carbon Dioxide 30 (22-32) mmol/L BUN 15 (7-17) mg/dL Creatinine 0.94 (0.52-1.04) mg/dL Estimated GFR 56.6 L (>60) mL/min BUN/Creatinine Ratio 16.0 (6-22) Glucose 141 H (80-110) mg/dL Lactate 1.3 (0.7-2.1) mmol/L Calcium 10.2 (8.4-10.2) mg/dL Magnesium 1.9 (1.6-2.3) mg/dL Total Bilirubin 0.6 (0.2-1.3) mg/dL AST 44 H (14-36) IU/L ALT 27 (<35) IU/L Alkaline Phosphatase 153 H (38-126) U/L Total Creatine Kinase 88 (30-135) U/L CK-MB (CK-2) TNP CK-MB (CK-2) Rel Index TNP Troponin I < 0.012 (0.01-0.034) ng/mL NT-Pro-B Natriuret Pep 2850 H (<450) pg/mL Total Protein 7.7 (6.3-8.2) g/dL Albumin 4.1 (3.5-5.0) g/dL Globulin 3.6 (1.7-4.1) g/dL Albumin/Globulin Ratio 1.1 (1.0-2.8) SARS-CoV-2 (PCR) (Negative) Imaging Data Chest x-ray: Radiologist's Impression: No pulmonary infiltrate. Small right pleural effusion. Cardiomegaly. ECG Data Attestation: I personally reviewed and interpreted this ECG as follows: Prior ECG tracings: available for review Interpretation: AFib with rapid ventricular response. Rate of 112, QRS 82 and QTC of 455. No acute ST changes appreciated. Patient has prior EKG from 09/13/2020 which appears similar. MDM Narrative Medical decision making narrative: 85-year-old female comes with complaint of difficulty breathing. Patient has also had complaint of weakness. She is COVID positive with otherwise reassuring imaging and labs. She has not been hypoxic while sitting but has had some intermittent AFib but not persistent. She has known atrial fibrillation and is on warfarin. Plan for ambulation trial in the department if she fails would need admission if she is able to ambulate safely with no drop in her oxygenation or major changes to her heart rate could discharge home. Patient was signed out to Dr. Lopez while awaiting this for final disposition. <Paddy Lopez MD - Last Filed: 05/12/21 12:14> Lab Data Labs: Lab Results 05/12/21 05/12/21 05/12/21 Range/Units 04:55 05:23 05:23 WBC 11.4 H (4.5-11.0) X10^3/uL RBC 4.60 (4.0-5.2) X10^6/uL Hgb 13.9 (12.0-16.0) g/dL Hct 42.2 (36-46) % MCV 91.7 (80-100) fL MCH 30.3 (26-34) PG MCHC 33.0 (30-36) % RDW 14.2 (11.6-14.8) % Plt Count 129 L (150-400) X10^3/uL Neut % (Auto) 69.6 (50-75) % Lymph % (Auto) 12.5 L (25-40) % [place] % (Auto) 10.7 (3-14) % Eos % (Auto) 5.0 H (2-4) % Baso % (Auto) 2.2 H (0-2) % Neut # (Auto) 7900 H (9925-7504) /uL Lymph # (Auto) 1400 (1020-5047) /uL [place] # (Auto) 1200 H (0-900) /uL Eos # (Auto) 600 H (0-450) /uL Baso # (Auto) 300 H (0-100) /uL Plt Morphology Comment * RBC Morphology Normal morphology PT 20.4 H (10.1-12.7) SECONDS INR 1.8 H (0.9-1.3) APTT 37 H D (26.4-36.2) SECONDS Sodium (137-145) mmol/L Potassium (3.4-5.1) mmol/L Chloride (98-107) mmol/L Carbon Dioxide (22-32) mmol/L BUN (7-17) mg/dL Creatinine (0.52-1.04) mg/dL Estimated GFR (>60) mL/min BUN/Creatinine Ratio (6-22) Glucose (80-110) mg/dL Lactate (0.7-2.1) mmol/L Calcium (8.4-10.2) mg/dL Magnesium (1.6-2.3) mg/dL Total Bilirubin (0.2-1.3) mg/dL AST (14-36) IU/L ALT (<35) IU/L Alkaline Phosphatase (38-126) U/L Total Creatine Kinase (30-135) U/L CK-MB (CK-2) CK-MB (CK-2) Rel Index Troponin I (0.01-0.034) ng/mL NT-Pro-B Natriuret Pep (<450) pg/mL Total Protein (6.3-8.2) g/dL Albumin (3.5-5.0) g/dL Globulin (1.7-4.1) g/dL Albumin/Globulin Ratio (1.0-2.8) SARS-CoV-2 (PCR) Positive H (Negative) 05/12/21 05/12/21 Range/Units 05:23 05:23 WBC (4.5-11.0) X10^3/uL RBC (4.0-5.2) X10^6/uL Hgb (12.0-16.0) g/dL Hct (36-46) % MCV (80-100) fL MCH (26-34) PG MCHC (30-36) % RDW (11.6-14.8) % Plt Count (150-400) X10^3/uL Neut % (Auto) (50-75) % Lymph % (Auto) (25-40) % [place] % (Auto) (3-14) % Eos % (Auto) (2-4) % Baso % (Auto) (0-2) % Neut # (Auto) (5336-6236) /uL Lymph # (Auto) (8907-3725) /uL [place] # (Auto) (0-900) /uL Eos # (Auto) (0-450) /uL Baso # (Auto) (0-100) /uL Plt Morphology Comment RBC Morphology PT (10.1-12.7) SECONDS INR (0.9-1.3) APTT (26.4-36.2) SECONDS Sodium 141 (137-145) mmol/L Potassium 3.2 L (3.4-5.1) mmol/L Chloride 105 (98-107) mmol/L Carbon Dioxide 30 (22-32) mmol/L BUN 15 (7-17) mg/dL Creatinine 0.94 (0.52-1.04) mg/dL Estimated GFR 56.6 L (>60) mL/min BUN/Creatinine Ratio 16.0 (6-22) Glucose 141 H (80-110) mg/dL Lactate 1.3 (0.7-2.1) mmol/L Calcium 10.2 (8.4-10.2) mg/dL Magnesium 1.9 (1.6-2.3) mg/dL Total Bilirubin 0.6 (0.2-1.3) mg/dL AST 44 H (14-36) IU/L ALT 27 (<35) IU/L Alkaline Phosphatase 153 H (38-126) U/L Total Creatine Kinase 88 (30-135) U/L CK-MB (CK-2) TNP CK-MB (CK-2) Rel Index TNP Troponin I < 0.012 (0.01-0.034) ng/mL NT-Pro-B Natriuret Pep 2850 H (<450) pg/mL Total Protein 7.7 (6.3-8.2) g/dL Albumin 4.1 (3.5-5.0) g/dL Globulin 3.6 (1.7-4.1) g/dL Albumin/Globulin Ratio 1.1 (1.0-2.8) SARS-CoV-2 (PCR) (Negative) Discharge Plan Departure Patient Disposition: Admitted as Observation Clinical Impression: COVID-19 virus infection, Pleural effusion, Atrial fibrillation, CHF (congestive heart failure), Closed fracture of T11 vertebra Admit Date/Time: 05/12/21 11:55 Admit Provider: Sayda Ybarra
[2021-05-12] MEDS: CODEINE/ACETAMINOPHEN 30/300 TABLET 1 TAB PO (05:03)
[2021-05-12 05:08] LABS: COVID19 -Nasal RAPID POSITIVE (Negative)
[2021-05-12 05:40] LABS: Lactate (Lactic Acid) 1.3 mmol/L (0.7-2.1)
[2021-05-12 05:41] LABS: Add Manual Diff / Slide Review SLIDE REVIEW; Alanine Aminotransferase 27 IU/L (<35); Albumin 4.1 g/dL (3.5-5.0); Albumin Globulin Ratio 1.1 (1.0-2.8); Alkaline Phosphatase 153 U/L (38-126); Aspartate Aminotransferase 44 IU/L (14-36); Basophils Absolute Auto 300 /uL (0-100); Basophils Percent Auto 2.2 % (0-2); Bilirubin Total 0.6 mg/dL (0.2-1.3); Blood Urea Nitrogen 15 mg/dL (7-17); Calcium 10.2 mg/dL (8.4-10.2); Carbon Dioxide 30 mmol/L (22-32); Chloride 105 mmol/L (98-107); Creatine Kinase 88 U/L (30-135); Eosinophils Absolute Auto 600 /uL (0-450); Estimated Glomerular Filt Rate 56.6 mL/min (>60); Globulin 3.6 g/dL (1.7-4.1); Glucose 141 mg/dL (80-110); HEMOLYSIS 22 (0-50); Hematocrit 42.2 % (36-46); Hemoglobin 13.9 g/dL (12.0-16.0); Lymphocytes Absolute Auto 1400 /uL (1100-4500); Lymphocytes Percent Auto 12.5 % (25-40); Magnesium 1.9 mg/dL (1.6-2.3); Mean Corpuscular Hemoglobin 30.3 PG (26-34); Mean Corpuscular Volume 91.7 fL (80-100); Monocytes Absolute Auto 1200 /uL (0-900); Monocytes Percent Auto 10.7 % (3-14); Neutrophils Absolute Auto 7900 /uL (1500-7000); Neutrophils Percent Auto 69.6 % (50-75); Platelet Count 129 X10^3/uL (150-400); Potassium 3.2 mmol/L (3.4-5.1); Red Cell Distribution Width 14.2 % (11.6-14.8); Sodium 141 mmol/L (137-145); Total Protein 7.7 g/dL (6.3-8.2); White Blood Cell Count 11.4 X10^3/uL (4.5-11.0)
[2021-05-12 05:53] LABS: NT-proBNP (BNP-Adult 18+) 2850 pg/mL (<450); Troponin I < 0.012 ng/mL (0.01-0.034)
[2021-05-12 06:15] LABS: INR 1.8 (0.9-1.3); Prothrombin Time 20.4 SECONDS (10.1-12.7)
[2021-05-12 06:17] LABS: PTT Partial Thromboplastin Tim 37 SECONDS (26.4-36.2)
[2021-05-12] MEDS: POTASSIUM CHLORIDE 20 MEQ TAB 40 MEQ PO (06:47)
[2021-05-12] MEDS: FUROSEMIDE 40 MG/4 ML VIAL IV (06:48)
[2021-05-12 06:54] LABS: RBC Morphology Normal Morphology
--- NOTE | 2021-05-12 08:21 | PC.NURSE ---
Patient ambulated in hallway. Walked very slowly with use of a walker. Pulse ox prior to ambulation was 97% on RA with heart rate of 80-120 (A Fib.). While walking, her fingers became immediately cold to the touch and I was unable to get a reliable SPO2 reading. She complains of terrible circulation. Has dry/hacking cough with some production of foamy white sputum. Walked 15 feet to the bathroom with quite a bit of assistance from me and the walker. Appears short of breath. Has pain to mid thoracic area from compression fracture.
--- NOTE | 2021-05-12 08:32 | PC.NURSE ---
Patient returned to bed after ambulation trial and I warmed her with warm blankets. SPO2 reading now 85-87% on RA with reliable wave form. I placed ehr on 2L O2 NC and informed Dr. Lopez.
[2021-05-12] MEDS: ALBUTEROL HFA PREPACK 1 BOX MISC (09:20)
[2021-05-12] MEDS: cefTRIAXone 2,000 MG in SODIUM CHLORIDE 0.9% 100 ML 200 ML IV (15:05)
[2021-05-12] MEDS: METOPROLOL ER 50 MG TABLET PO ×2 (15:07→21:05)
[2021-05-12] MEDS: LOSARTAN 25 MG TABLET 50 MG PO (15:08)
[2021-05-12] MEDS: DEXAMETHASONE 10 MG/ML VIAL 6 MG IV (15:10)
[2021-05-12] MEDS: AMIODARONE 200 MG TABLET PO (15:13)
--- NOTE | 2021-05-12 15:48 | P.HP_ITS ---
History of Present Illness History of Present Illness Chief complaint: Difficulty breathing Narrative: 85yo female with a hx of hypertension, atrial fibrillation on warfarin and amiodarone, and HFrEF (EF 25-30%), likely dilated cardiomyopathy, that presents with SOB and cough. She reports this has been going on for 2-3 days. However, this morning she was having a hard time catching her breath, that's when she asked her son to call EMS. Of note, her , whom she lives with, was recently diagnosed with C OVID. The patient has received 2 of the Moderna vaccines for COVID. She has been unable to get a booster shot. She denies any other sick contacts. She denies any recent travel history. She denies fever/chills, rhinorrhea, abd pain, n/v/d, urinary complaints, weight loss. She does having more frequent falls at home lately, and she attributes this to unsteadiness. The patient endorses a remote 5 pack-yr smoking history. She denies any EtOH or illicit drug use. She reports being adherent with all her medications, and knows them by name and dose, including her lasix pill. She reports an allergy to gabapentin, as having led her to have suicidal thoughts. She denies knowing of any relevant family history. PSH is unremarkable. Of note, the patient does endorse wearing oxygen at home sometimes, especially with exertion. Patient History Medical History Atrial fibrillation Congestive heart failure Family & Social History Social History: household members spouse Prior Living Arrangements House Safety & Behavioral: Feels Safe in Current Yes Environment Been Physically Hurt or No Threatened By a Person Suicidal Ideation Description None Suicide Plan Description No Plan Tobacco & Substance use: Smoking Status Never smoker alcohol intake former alcohol intake frequency 0-2 drinks per day Substance Use Type does not use Meds Home Medications and Allergies Home Medications Medication Instructions Recorded Confirmed Type amitriptyline 25 mg tablet 25 mg PO BEDTIME 09/13/20 05/12/21 History furosemide 40 mg tablet 40 mg PO DAILY 09/13/20 05/12/21 History metoprolol succinate 100 mg 100 mg PO BID 09/13/20 05/12/21 History tablet,extended release 24 hr warfarin 2.5 mg tablet See Rx Instructions .ROUTE .COMPLEX 09/13/20 05/12/21 History losartan 25 mg tablet 25 mg PO DAILY 09/14/20 05/12/21 History tramadol 50 mg tablet 50 mg PO Q8H PRN #10 tab 05/09/21 05/12/21 Rx amiodarone 200 mg tablet 200 mg PO DAILY 05/12/21 05/12/21 History Allergies Allergy/AdvReac Type Severity Reaction Status Date / Time diltiazem Allergy Verified 01/26/21 21:35 gabapentin Allergy Depression Verified 09/13/20 15:06 Review of Systems Constitutional Comments: Denies fever/chills, weight loss, night sweats. Eyes Comments: Denies vision changes. Cardiovascular Comments: Denies CP, palpitations, peripheral edema. Respiratory Comments: Endorses SOB, cough. Denies sputum production. Gastrointestinal Comments: Denies abd pain, n/v/d. Musculoskeletal Comments: Denies muscle aches, muscle pain. Integumentary/Breasts Comments: Denies any new skin lesions. Exam Vital Signs (past 8 hours): - 05/12/21 08:10 05/12/21 08:30 05/12/21 08:35 Temperature Pulse Rate 128 H 109 H 105 H Respiratory Rate Blood Pressure Pulse Oximetry 95 87 L 94 05/12/21 08:36 05/12/21 09:00 05/12/21 09:01 Temperature Pulse Rate 105 H 92 H 96 H Respiratory Rate Blood Pressure 122/78 109/50 L Pulse Oximetry 95 94 94 05/12/21 09:30 05/12/21 09:35 05/12/21 10:00 Temperature Pulse Rate 98 H 96 H 103 H Respiratory Rate 18 Blood Pressure 93/48 L Pulse Oximetry 95 94 94 05/12/21 10:30 05/12/21 11:00 05/12/21 11:30 Temperature Pulse Rate 103 H 96 H 94 H Respiratory Rate Blood Pressure 99/67 106/57 L 118/72 Pulse Oximetry 94 96 95 05/12/21 12:00 05/12/21 12:30 05/12/21 12:31 Temperature Pulse Rate 97 H 89 89 Respiratory Rate Blood Pressure 125/75 140/67 Pulse Oximetry 97 96 96 05/12/21 13:15 05/12/21 14:32 05/12/21 15:07 Temperature 99.2 F Pulse Rate 62 Respiratory Rate 24 Blood Pressure 152/102 H 152/102 H Pulse Oximetry 94 94 05/12/21 15:08 Temperature Pulse Rate Respiratory Rate Blood Pressure 152/102 H Pulse Oximetry Oxygen Delivery Method Nasal Cannula Oxygen Flow Rate 2 Const Other: Patient sitting up in bed slightly upon my entering the room, attempting to bring up sputum Eyes Other: No scleral icterus appreciated Neck Other: No carotid bruits noted Resp Other: Rhonchi appreciated diffusely, with no significant wheezing appreciated, or crackles Cardio Other: RRR, S1 and S2 heart sounds normal, S3 heart sound appreciated, without significant peripheral edema GI Other: Soft, non-distended, non-tender, bowel sounds present Skin Other: No grossly abnormal skin lesions noted Extrem Other: Palpable and equally steady radial and dorsalis pedis pulses Objective Labs Result Diagrams: 05/12/21 05:23 05/12/21 05:23 Labs: Laboratory Results - last 24 hr 05/12/21 05/12/21 05/12/21 04:55 05:23 05:23 WBC 11.4 H RBC 4.60 Hgb 13.9 Hct 42.2 MCV 91.7 MCH 30.3 MCHC 33.0 RDW 14.2 Plt Count 129 L Neut % (Auto) 69.6 Lymph % (Auto) 12.5 L [place] % (Auto) 10.7 Eos % (Auto) 5.0 H Baso % (Auto) 2.2 H Neut # (Auto) 7900 H Lymph # (Auto) 1400 [place] # (Auto) 1200 H Eos # (Auto) 600 H Baso # (Auto) 300 H Plt Morphology Comment * RBC Morphology Normal morphology PT 20.4 H INR 1.8 H APTT 37 H D Sodium Potassium Chloride Carbon Dioxide BUN Creatinine Estimated GFR BUN/Creatinine Ratio Glucose Lactate Calcium Magnesium Total Bilirubin AST ALT Alkaline Phosphatase Total Creatine Kinase CK-MB (CK-2) CK-MB (CK-2) Rel Index Troponin I NT-Pro-B Natriuret Pep Total Protein Albumin Globulin Albumin/Globulin Ratio SARS-CoV-2 (PCR) Positive H 05/12/21 05/12/21 05:23 05:23 WBC RBC Hgb Hct MCV MCH MCHC RDW Plt Count Neut % (Auto) Lymph % (Auto) [place] % (Auto) Eos % (Auto) Baso % (Auto) Neut # (Auto) Lymph # (Auto) [place] # (Auto) Eos # (Auto) Baso # (Auto) Plt Morphology Comment RBC Morphology PT INR APTT Sodium 141 Potassium 3.2 L Chloride 105 Carbon Dioxide 30 BUN 15 Creatinine 0.94 Estimated GFR 56.6 L BUN/Creatinine Ratio 16.0 Glucose 141 H Lactate 1.3 Calcium 10.2 Magnesium 1.9 Total Bilirubin 0.6 AST 44 H ALT 27 Alkaline Phosphatase 153 H Total Creatine Kinase 88 CK-MB (CK-2) TNP CK-MB (CK-2) Rel Index TNP Troponin I < 0.012 NT-Pro-B Natriuret Pep 2850 H Total Protein 7.7 Albumin 4.1 Globulin 3.6 Albumin/Globulin Ratio 1.1 SARS-CoV-2 (PCR) Assessment & Plan Assessment & Plan narrative: Assessment: 1. Acute hypoxic respiratory failure, likely due to COVID-19 pneumonia 2. Community-acquired pneumonia 3. Hypertension 4. Atrial fibrillation 5. HFrEF (EF 25-30%), likely dilated cardiomyopathy 6. T-11 compression fracture, acute 7. Insomnia/depression Plan: 1. Saturating well on 2-3 liters oxygen now. Patient does wear oxygen at home, especially with exertion, but she doesn't know why. Dexamethaxone 6 mg daily on- board. 2. IV ceftriaxone and IV azithromycin on-board. The latter can potentially help her COVID pneumonia, too, by decreasing inflammation. 3. Will continue home losartan 25 mg daily, and uptitrate if needed. 4. Currently well-controlled on home Toprol 100 bid and amiodarone 200 mg daily. Will decrease Toprol dose as her HR is running on the lower side. Will continue home warfarin for anticoagulation. Appreciated pharmacy's assistance in dosing. 5. Received IV lasix 40 mg in the ER one-time. Appears euvolemic currently. Will continue home lasix 40 mg daily. 6. This occurred after a fall at home from patient being unsteady. Appreciate orthopedic consult recommendations. 7. Will continue home amitriptyline 25 mg nightly. VTE prophylaxis: Warfarin, per problem 4 Code: DNR/DNI I have utilized all available immediate resources to obtain, update, or review the patient's current medications Time Spent With Patient Critical Care time: I spent a total of [] minutes of critical care time on this patient's care today; this time is exclusive of procedural time. Quality VTE Deep Vein Thrombosis/Pulmonary Embolism Present on Admission: No MIPS - Admit I confirm the patient?s Advance Care Plan is present, Code status is documented, Surrogate decision maker is in patient?s record [If Yes, STOP here]: Yes
[2021-05-12] MEDS: AZITHROMYCIN 500 MG in DEXTROSE 5% IN WATER 250 ML IV (16:27)
[2021-05-12] MEDS: WARFARIN 1 MG TABLET 1.25 MG PO (16:37)
[2021-05-12] MEDS: guaiFENesin Solution 100 MG/5 ML UDC PO ×2 (16:41→21:07)
--- NOTE | 2021-05-12 17:26 | PC.NURSE ---
Pt arrived from ED, SOB w/excretion. Lungs wheezing w/ productive cough, clear sputum. SpO2 Saline lock left hand intact/patent. Receiving antibiotics as per orders. Call light w/in reach, bed alarm on for pt safety. Continue w/plan of care.
--- NOTE | 2021-05-12 20:12 | P.CONS_ITS ---
History of Present Illness Consult details Date Patient Seen: 05/12/21 Time Patient Seen: 19:10 Chief complaint: Difficulty breathing Reason for consult: Thoracic compression fracture Narrative: This is a very nice 85-year-old female who is vaccinated who was admitted with shortness of breath and is having ongoing thoracic chest pain with difficulty with coughing. She lives with her elderly and they have an in-home caregiver. They are in the process of selling their house and attempting to move to [facility] in [place]. Her was recently admitted to [facility] and found to be COVID positive. He was just discharged today to a rehab facility. She noted progressive shortness of breath and was admitted through the emergency room. She does have a history of multiple falls. Meds Home Medications and Allergies Home Medications Medication Instructions Recorded Confirmed Type amitriptyline 25 mg tablet 25 mg PO BEDTIME 09/13/20 05/12/21 History furosemide 40 mg tablet 40 mg PO DAILY 09/13/20 05/12/21 History metoprolol succinate 100 mg 100 mg PO BID 09/13/20 05/12/21 History tablet,extended release 24 hr warfarin 2.5 mg tablet See Rx Instructions .ROUTE .COMPLEX 09/13/20 05/12/21 History losartan 25 mg tablet 25 mg PO DAILY 09/14/20 05/12/21 History tramadol 50 mg tablet 50 mg PO Q8H PRN #10 tab 05/09/21 05/12/21 Rx amiodarone 200 mg tablet 200 mg PO DAILY 05/12/21 05/12/21 History Allergies Allergy/AdvReac Type Severity Reaction Status Date / Time diltiazem Allergy Verified 01/26/21 21:35 gabapentin Allergy Depression Verified 09/13/20 15:06 Review of Systems Review of Systems Narrative: She denies numbness or tingling in bilateral lower extremities. She has not noticed any problems with her bowel or bladder she does note some chronic problems with wound healing on bilateral lower extremities. The she does have a history of multiple falls and she does stay that she did have compression fracture at 1 point but was not having substantial thoracic back pain. Exam Vital Signs (past 8 hours): - 05/12/21 12:30 05/12/21 12:31 05/12/21 13:15 Temperature 99.2 F Pulse Rate 89 89 62 Respiratory Rate 24 Blood Pressure 140/67 152/102 H Pulse Oximetry 96 96 94 05/12/21 14:32 05/12/21 15:07 05/12/21 15:08 Temperature Pulse Rate Respiratory Rate Blood Pressure 152/102 H 152/102 H Pulse Oximetry 94 05/12/21 16:41 05/12/21 18:00 05/12/21 18:32 Temperature Pulse Rate Respiratory Rate 20 Blood Pressure 152/102 H Pulse Oximetry 95 Oxygen Delivery Method Nasal Cannula Oxygen Flow Rate 2 Narrative Exam Narrative: She is resting comfortably in bed she has obvious excessive kyphotic deformity in her thoracic spine, she is moving adequate here with breath sounds bilaterally, she does not appear to be in acute respiratory distress, cor is regular rate and rhythm, abdomen is benign, she has moderate to significant tenderness to palpation along her thoracic spine at the thoracolumbar junction right greater than left. She does have some soft tissue wounds on bilateral lower extremities which her appropriately dressed, she has minimal pain with range of motion in her hips bilaterally. She is neurologically intact distally. She does note some mild bilateral foot numbness. Objective Labs Result Diagrams: 05/12/21 05:23 05/12/21 05:23 Labs: Laboratory Results - last 24 hr 05/12/21 05/12/21 05/12/21 04:55 05:23 05:23 WBC 11.4 H RBC 4.60 Hgb 13.9 Hct 42.2 MCV 91.7 MCH 30.3 MCHC 33.0 RDW 14.2 Plt Count 129 L Neut % (Auto) 69.6 Lymph % (Auto) 12.5 L [place] % (Auto) 10.7 Eos % (Auto) 5.0 H Baso % (Auto) 2.2 H Neut # (Auto) 7900 H Lymph # (Auto) 1400 [place] # (Auto) 1200 H Eos # (Auto) 600 H Baso # (Auto) 300 H Plt Morphology Comment * RBC Morphology Normal morphology PT 20.4 H INR 1.8 H APTT 37 H D Sodium Potassium Chloride Carbon Dioxide BUN Creatinine Estimated GFR BUN/Creatinine Ratio Glucose Lactate Calcium Magnesium Total Bilirubin AST ALT Alkaline Phosphatase Total Creatine Kinase CK-MB (CK-2) CK-MB (CK-2) Rel Index Troponin I NT-Pro-B Natriuret Pep Total Protein Albumin Globulin Albumin/Globulin Ratio SARS-CoV-2 (PCR) Positive H 05/12/21 05/12/21 05:23 05:23 WBC RBC Hgb Hct MCV MCH MCHC RDW Plt Count Neut % (Auto) Lymph % (Auto) [place] % (Auto) Eos % (Auto) Baso % (Auto) Neut # (Auto) Lymph # (Auto) [place] # (Auto) Eos # (Auto) Baso # (Auto) Plt Morphology Comment RBC Morphology PT INR APTT Sodium 141 Potassium 3.2 L Chloride 105 Carbon Dioxide 30 BUN 15 Creatinine 0.94 Estimated GFR 56.6 L BUN/Creatinine Ratio 16.0 Glucose 141 H Lactate 1.3 Calcium 10.2 Magnesium 1.9 Total Bilirubin 0.6 AST 44 H ALT 27 Alkaline Phosphatase 153 H Total Creatine Kinase 88 CK-MB (CK-2) TNP CK-MB (CK-2) Rel Index TNP Troponin I < 0.012 NT-Pro-B Natriuret Pep 2850 H Total Protein 7.7 Albumin 4.1 Globulin 3.6 Albumin/Globulin Ratio 1.1 SARS-CoV-2 (PCR) x-rays from 05/09/2021 of her thoracic spine show a T11 compression fracture. There does not appear to be retropulsion of any bone posteriorly. I concur with the radiology reading that it will is likely subacute. There is acceptable overall alignment. [facility] Medical History Atrial fibrillation Congestive heart failure Social History marital status: household members: spouse Tobacco & Substance Use Smoking Status: Never smoker alcohol intake: former Assessment & Plan Assessment and plan (1) Compression fracture of T11 vertebra: Status: Acute (2) COVID-19 virus infection: Status: Acute (3) Pleural effusion: Status: Acute Assessment & Plan narrative: She is quite uncomfortable with her T11 compression fracture. I think it would be appropriate to provide her with the brace. A TLS brace potentially will p rovide some support and decrease her overall pain. She is currently COVID positive. She is resting comfortably in bed. Think it is appropriate to get her fitted with a brace prior to considering discharge but her fracture is not unstable enough that I think it is mandated. I think pulmonary toilet and appropriate treatment for her respiratory distress from a COVID standpoint takes priority over a fracture. The goal of the brace would be to prior provide some additional support and comfort. She can follow-up in my office in about 2 weeks or so if she is in the area. We will get repeat radiographs at that time. Time Spent With Patient Critical Care time: I spent a total of [] minutes of critical care time on this patient's care today; this time is exclusive of procedural time.
[2021-05-12] MEDS: TRAMADOL 50 MG TABLET PO (21:03)
[2021-05-12] MEDS: AMITRIPTYLINE 25 MG TABLET PO (21:03)
[2021-05-13] VITALS (17 sets, daily range): BP systolic 95–134; BP diastolic 52–81; PULSE 79–112; RESP 16–20; TEMP 36.4–36.6; O2SAT 92–97
[2021-05-13 07:59] LABS: Add Manual Diff / Slide Review NO; Basophils Absolute Auto 0 /uL (0-100); Basophils Percent Auto 0.3 % (0-2); Eosinophils Absolute Auto 0 /uL (0-450); Hematocrit 39.2 % (36-46); Hemoglobin 13.2 g/dL (12.0-16.0); Lymphocytes Absolute Auto 1500 /uL (1100-4500); Lymphocytes Percent Auto 17.8 % (25-40); Mean Corpuscular HGB Conc 33.7 % (30-36); Mean Corpuscular Hemoglobin 30.8 PG (26-34); Mean Corpuscular Volume 91.4 fL (80-100); Monocytes Absolute Auto 400 /uL (0-900); Monocytes Percent Auto 5.2 % (3-14); Neutrophils Absolute Auto 6300 /uL (1500-7000); Neutrophils Percent Auto 76.7 % (50-75); Red Blood Cell Count 4.28 X10^6/uL (4.0-5.2); Red Cell Distribution Width 14.2 % (11.6-14.8); White Blood Cell Count 8.2 X10^3/uL (4.5-11.0)
[2021-05-13 08:06] LABS: BUN Creatinine Ratio 21.6 (6-22); Blood Urea Nitrogen 21 mg/dL (7-17); Carbon Dioxide 30 mmol/L (22-32); Chloride 103 mmol/L (98-107); Estimated Glomerular Filt Rate 54.6 mL/min (>60); Glucose 165 mg/dL (80-110); HEMOLYSIS < 15 (0-50); Magnesium 1.9 mg/dL (1.6-2.3); Potassium 3.1 mmol/L (3.4-5.1); Sodium 140 mmol/L (137-145)
[2021-05-13 08:18] LABS: Platelet Count 130 X10^3/uL (150-400)
[2021-05-13] MEDS: METOPROLOL ER 50 MG TABLET PO ×2 (09:58→21:29)
[2021-05-13] MEDS: AMIODARONE 200 MG TABLET PO (09:58)
[2021-05-13] MEDS: LOSARTAN 25 MG TABLET 50 MG PO (09:59)
[2021-05-13] MEDS: FUROSEMIDE 40 MG TABLET PO (10:00)
[2021-05-13] MEDS: DEXAMETHASONE 10 MG/ML VIAL 6 MG IV (10:00)
--- NOTE | 2021-05-13 10:11 | PC.NURSE ---
Day shift: Gave potassium and Tramadol per MAY. Unable to scan and Irnea in pharmacy is aware.
[2021-05-13] MEDS: POTASSIUM CHLORIDE 20 MEQ TAB 40 MEQ PO (10:14)
[2021-05-13] MEDS: TRAMADOL 50 MG TABLET PO (10:15)
--- NOTE | 2021-05-13 11:05 | CM.DPNOTE ---
Addendum entered by Osiris Ghotra 05/13/21 13:10: Arranged BLS transport per Keesha, with [facility] at 1130 on Sat., 05/14. Spoke to Ricardo and she confirmed they will arrive by 1130. Gave her Keesha's phone number as contact. Need POLST. Keesha working on this. Osiris Ghotra CM Assist. Original Note: Faxed referral packet to [facility] per Keesha. Received fax conf. Osiris Ghotra CM assist.
[2021-05-13 11:14] LABS: Phosphorous 3.7 mg/dL (2.8-4.1)
--- NOTE | 2021-05-13 11:41 | OT.IP.EVAL ---
Current Diagnoses Pleural effusion, not elsewhere classified (05/12/21) Wedge compression fracture of T11-T12 vertebra, initial encounter for closed fracture (05/12/21) COVID-19 (05/12/21) Past Medical History (Last Reviewed 05/12/21 @ 20:15 by Karyna Wolf MD) Atrial fibrillation Congestive heart failure Occupational Therapy Inpatient Evaluation/Re-Eval M1 PT/OT-IP Prior Functional Status Start: 05/13/21 13:58 Freq: NEEDED Status: Active Protocol: Document 05/13/21 13:58 [facility] (Rec: 05/13/21 14:22 [facility] [id number]) Medical Review Prior Functional Status Communication independent Mobility and Gait Pt states uses a 4WW for mobility needs. Activities of Daily Living and IADL's Pt states was able to do all her ADL and IADL needs prior to her injury from Sunday. Social History Household Members spouse Living Arrangements House Number of Stairs To Enter/Railing? Ramp to get into the house. Home Environment High Toilet,Tub/Shower Home Equipment Four Wheel Walker,Shower Seat without Backrest,Hand Held Shower,Grab Bars Near Toilet, Grab Bars In Shower Additional Social History Comment Pt states used a shower stool while her used the tub bench. Prior pt had caregivers come to asisst her for showers. Currently , pt's at SNF. M2 OT-IP Current Condition Start: 05/13/21 13:58 Freq: Status: Active Protocol: Document 05/13/21 13:58 [facility] (Rec: 05/13/21 14:22 [facility] [id number]) Occupational Therapy Current Condition Current Condition Evaluation Date 05/13/21 Treatment Diagnosis T11 compression fx, COVID +, decreased mobility Diagnosis Onset Date 05/12/21 Post Operative Precautions Lumbar Precautions Log Roll,No Twisting,Limit Bending,Lifting Restriction of 10 lbs Other Precautions Called Dr. Wolf to clarify orders for TLSO and parameters . Dr. Wolf gave verbal order for pt to have TLSO for comfort, especially on when up and ambulating, per comfort in bed and off for hygiene needs. M3 OT- IP Subjective and Pain Start: 05/13/21 13:58 Freq: Status: Active Protocol: Document 05/13/21 13:58 [facility] (Rec: 05/13/21 14:22 [facility] [id number]) OT- Subjective Occupational Therapy Visit Type Type Initial Evaluation Visit Start Time 09:00 Visit Stop Time 11:41 Total Visit Minutes 76 Notes Pt seen for split treatment [id number] and [id number]. Occupational Therapy Visit Comments Patient Comments Able to talk to the pt regarding back brace and pt agreed would like to use TLSO. In addition prior pt states was thinkgin about getting a back brace for herself. Able to talk to nursing regarding how to cathleen/doff the TLSO and the parameters given by Dr. Wolf. Patient/Caregiver Goals TO get better and go home. Pt realizes that she will be going to skilled rehab first prior to going home. OT Pain Assessment Pain When Pain Assessed During Mobility Pain Present Pain Present Denied Pain M4 OT- IP ADL's Start: 05/13/21 13:58 Freq: Status: Active Protocol: Document 05/13/21 13:58 [facility] (Rec: 05/13/21 14:22 [facility] [id number]) OT [id number]-[id number] General Evaluation Self-Feeding Ability Standby Assistance Areas Needing Assistance Opening Containers Comments OT Self-Feeding Comments set-up assist OT ADL-Grooming General Evaluation Grooming Ability Standby Assistance Areas Needing Assistance Retrieving/Set-up of Grooming Items OT ADL-Oral Care General Eval Oral Care Ability Standby Assistance Areas of Assistance Retrieving/Set-Up of Items Comments Oral Care Comments Able to stand with FWW in front of the sink. Able to educated best to spit into a cup or hinge at her hips. OT ADL-Dressing General Eval Lower Body Dressing Ability Maximum Assistance Areas Needing Assistance Underpants/Brief,Socks Comments OT Dressing Comments At this time pt unable to LB dressing needs due to her pain . Able to assist pt to cathleen/fit the TLSO while seated and pt able to assist to take it off with ABDELRAHMAN. To continue to practice with pt to be able to independently do on her own or be able to educated someone to assist her if needed. OT ADL-Toileting General Evaluation Toileting Ability Moderate Assistance,Maximum Assistance Areas Needing Assistance Manage Clothing Comments OT Toileting Comments Assist to cathleen /doff her brief over her hips. OT ADL-Bathing Comments OT Bathing Comments Not performed. M5 OT- IP IADL's Start: 05/13/21 13:58 Freq: Status: Active Protocol: Document 05/13/21 13:58 [facility] (Rec: 05/13/21 14:22 [facility] [id number]) OT-Instrumental Activities of Daily Living Home Safety Awareness Awareness of Need for Assistance at Home Good Awareness Ability to Problem Solve Emergency Able to Problem Solve Situations M6 OT- IP Functional Cognition Start: 05/13/21 13:58 Freq: Status: Active Protocol: Document 05/13/21 13:58 [facility] (Rec: 05/13/21 14:22 [facility] [id number]) Cognitive Factors Limiting Selfcare Function Cognitive Ability Level of Alertness Alert Patient Orientation Name,Age,Birthday,Month,Date, Year,Day of Week,Place, Situation Attention Span Ability Capable of Focused Attention, Capable of Sustained Attention Ability to Follow Commands Able to Follow One Step Commands Cognitive Comments Cognitive Assessment Comments Pt is very cooperative, pleasant, and able to follow commands for ADl and mobility needs. Pt needing initial education for log rolling needs and to be sure to push up from surfaces when coming to stand. OT- Vision and Hearing OT- Vision Assessment Visual Acuity Glasses For Reading M7 OT- IP Mobility and Balance Start: 05/13/21 13:58 Freq: Status: Active Protocol: Document 05/13/21 13:58 [facility] (Rec: 05/13/21 14:22 [facility] [id number]) OT- Bed Mobility Assessment Rolling Type of Rolling Roll to Left Level of Assistance Moderate Assistance Supine to Sit Supine to Sit Assist Moderate Assistance OT-Transfer Assessment Sit to and From Stand Sit to and from Stand Moderate Assistance Transfers Transfer Ability Minimal Assistance Technique Transfer Destination Bed,Toilet Transfer Technique Stand Step Pivot Devices Transfer Assistive Devices Gait Belt,Front Wheeled Walker OT- Gait Assessment Comments Gait Ability Comments CGA/ABDELRAHMAN with FWW OT- Balance Assessment Sitting Balance and Reactions Static Sitting Balance Ability Good Dynamic Sitting Balance Ability Fair Standing Balance and Reactions Static Standing Balance Ability Fair Comments Other Balance Tests/Deviations/Treatment Pt needing use of FWW for : steadying when on her feet. M8 OT- IP Objective Assessments Start: 05/13/21 13:58 Freq: Status: Active Protocol: Document 05/13/21 13:58 [facility] (Rec: 05/13/21 14:22 [facility] [id number]) OT Gross Range of Motion Upper Extremity Range of Motion Assessment Bilaterally Impaired OT Strength Upper Extremity Strength Assessment Bilaterally Impaired OT- Coordination Assessment Comments Coordination Comments Arthritic changes in hands and needing assist for set-up for grooming needs. OT-Muscle Tone Assessment Muscle Tone WNL Yes M9 OT- IP Assessment and Plan Start: 05/13/21 13:58 Freq: Status: Active Protocol: Document 05/13/21 13:58 [facility] (Rec: 05/13/21 14:22 [facility] [id number]) OT Summary Assessment and Plan Potential Rehabilitation Potential Good Analytic Complexity at Evaluation High Summary OT Impairments Pain,Balance,Functional Mobility,Grooming,Dressing, Toileting,Bathing,Toilet Transfers,Shower Transfers, Activity Tolerance Progress Towards Goals Slow Progress due to Pain Assessment Summary Pt high complexity and here with T11 compression fx, COVID + and PE. Prior pt was completely independent with her needs fo ADL's and mobility with FWW , however noted recent having more falls . Pt would highly benefit from skilled rehab prior to going home. Goals Grooming Goal Independent Dressing Goal Independent Toileting Goal Independent Bathing Goal Independent Toilet Transfer Goal Independent Shower Transfer Goal Independent Days to Meet Goals 20 Frequency of Treatment Frequency Of Treatment Once a Day Treatment Plan OT Treatment Plan ADL Training,Functional Mobility,Patient/Family Education,Discharge Planning Other Treatment Recommendations and Next TLSO management Treatment Focus Discharge Recommendations OT Discharge Recommendations SNF Rehab Transportation Needs at Discharge Wheelchair/Cabulance
--- NOTE | 2021-05-13 13:32 | P.PN_ITS ---
Subjective Subjective Interval history: Patient appears much better this morning. She says she coughed up a lot of junk yesterday, and feels better for it. She denies any acute complaints. She understands that she's pending SNF placement, possibly tomorrow. Exam Vital Signs (past 8 hours): - 05/13/21 06:00 05/13/21 07:40 05/13/21 09:00 Temperature 97.6 F 97.5 F L Pulse Rate 99 H 90 81 Respiratory Rate 18 20 18 Blood Pressure 133/71 134/81 Pulse Oximetry 94 92 96 05/13/21 09:58 05/13/21 09:59 05/13/21 10:00 Temperature Pulse Rate 92 H 79 Respiratory Rate Blood Pressure 134/81 134/81 Pulse Oximetry 96 05/13/21 11:44 Temperature Pulse Rate 112 H Respiratory Rate Blood Pressure Pulse Oximetry Oxygen Delivery Method Room Air Oxygen Flow Rate 0 Narrative Exam Narrative: Const Other: Patient sitting up in bed slightly upon my entering the room, comfortable and in no apparent, acute distress Eyes Other: No scleral icterus appreciated Neck Other: No carotid bruits noted Resp Other: Patchy areas of rhonchi appreciated, with better air exchange today Cardio Other: RRR, S1 and S2 heart sounds normal, S3 heart sound appreciated, without significant peripheral edema GI Other: Soft, non-distended, non-tender, bowel sounds present Skin Other: No grossly abnormal skin lesions noted Extrem Other: Palpable and equally steady radial and dorsalis pedis pulses Objective Labs Result Diagrams: 05/13/21 07:24 05/13/21 07:24 Labs: Laboratory Results - last 24 hr 05/13/21 05/13/21 05/13/21 07:24 07:24 07:42 WBC 8.2 RBC 4.28 Hgb 13.2 Hct 39.2 MCV 91.4 MCH 30.8 MCHC 33.7 RDW 14.2 Plt Count 130 L Neut % (Auto) 76.7 H Lymph % (Auto) 17.8 L [place] % (Auto) 5.2 Eos % (Auto) 0.0 L Baso % (Auto) 0.3 Neut # (Auto) 6300 Lymph # (Auto) 1500 [place] # (Auto) 400 Eos # (Auto) 0 Baso # (Auto) 0 Sodium 140 Potassium 3.1 L Chloride 103 Carbon Dioxide 30 BUN 21 H Creatinine 0.97 Estimated GFR 54.6 L BUN/Creatinine Ratio 21.6 Glucose 165 H Calcium 10.0 Phosphorus 3.7 Magnesium 1.9 [facility] Medical History Atrial fibrillation Congestive heart failure Social History marital status: household members: spouse Smoking Status: Never smoker alcohol intake: former Assessment & Plan Assessment & Plan narrative: Assessment: 1. Acute hypoxic respiratory failure, likely due to COVID-19 pneumonia 2. Community-acquired pneumonia 3. Hypertension 4. Atrial fibrillation 5. HFrEF (EF 25-30%), likely dilated cardiomyopathy 6. T-11 compression fracture, acute 7. Insomnia/depression Plan: 1. Saturating well on room air now. Patient does wear oxygen at home, especially with exertion, but she doesn't know why. Dexamethaxone 6 mg daily on-board. 2. IV ceftriaxone and IV azithromycin on-board. The latter can potentially help her COVID pneumonia, too, by decreasing inflammation. 3. Will continue home losartan 25 mg daily, and uptitrate if needed. 4. Currently well-controlled on home Toprol 100 bid and amiodarone 200 mg daily. Will decrease Toprol dose as her HR is running on the lower side. Will continue home warfarin for anticoagulation. 5. Received IV lasix 40 mg in the ER one-time. Appears euvolemic currently. Will continue home lasix 40 mg daily. 6. This occurred after a fall at home from patient being unsteady. Appreciate orthopedic consult recommendations regarding TLS brace. 7. Will continue home amitriptyline 25 mg nightly. VTE prophylaxis: Warfarin, per problem 4 Time Spent With Patient Critical Care time: I spent a total of [] minutes of critical care time on this patient's care today; this time is exclusive of procedural time. Quality VTE Deep Vein Thrombosis/Pulmonary Embolism Present on Admission: No
[2021-05-13] MEDS: cefTRIAXone 2,000 MG in SODIUM CHLORIDE 0.9% 100 ML 200 ML IV (14:17)
--- NOTE | 2021-05-13 14:25 | PT.IIE ---
Current Diagnoses Pleural effusion, not elsewhere classified (05/12/21) Wedge compression fracture of T11-T12 vertebra, initial encounter for closed fracture (05/12/21) COVID-19 (05/12/21) Medical History (Last Reviewed 05/12/21 @ 20:15 by Karyna Wolf MD) Atrial fibrillation Congestive heart failure Physical Therapy Inpatient Evaluation/Re-Eval M1 PT/OT-IP Prior Functional Status Start: 05/13/21 15:36 Freq: NEEDED Status: Active Protocol: Document 05/13/21 14:25 [facility] (Rec: 05/13/21 15:57 [facility] [id number]) Medical Review Prior Functional Status Medical History Reviewed Yes Communication able to make needs known Mobility and Gait pt stated that she is modified independent with all mobilities and ambulation using 4WW. 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 Prior Functional Level (Other details) spouse currently on a SNF rehab. Social History Household Members spouse Living Arrangements House Number of Stairs To Enter/Railing? Ramp to get into the house. Home Environment High Toilet,Walk in Shower Home Equipment Four Wheel Walker,Shower Seat with Backrest,Hand Held Shower ,Grab Bars Near Toilet,Grab Bars In Shower M2 PT-IP Current Condition Start: 05/13/21 15:36 Freq: NEEDED Status: Active Protocol: Document 05/13/21 14:25 [facility] (Rec: 05/13/21 15:57 AB [id number]) Physical Therapy Current Condition Current Condition Evaluation Date 05/13/21 Treatment Diagnosis COVID; T11 compression fx; difficulty in walking Onset Date 05/12/21 M3 PT-IP Subjective Start: 05/13/21 15:36 Freq: NEEDED Status: Active Protocol: Document 05/13/21 14:25 AB (Rec: 05/13/21 15:57 AB [email or web address]) Subjective Physical Therapy Visit Type Type Initial Evaluation Visit Start Time 14:25 Visit Stop Time 15:17 Total Visit Minutes 52 Number of RADIOLOGIC THERAPIST Visits 0 Physical Therapy Visit Comments Patient Comments agreeable to do PT; requesting to use the toilet Therapy Pain Assessment Pain When Pain Assessed During Mobility Location Right Back Scale Used denied pain at rest; increase pain with bed mobility but no pain scale M4 PT-IP Mobility and Gait Start: 05/13/21 15:36 Freq: NEEDED Status: Active Protocol: Document 05/13/21 14:25 AB (Rec: 05/13/21 15:57 AB [id number]) PT-Bed Mobility Assessment Rolling Type of Rolling Log Rolling Level of Assist Maximal Assistance Supine to Sit Supine to Sit Maximum Assistance Sit to Supine Sit to Supine Maximum Assistance PT-Transfer Assessment Sit to and From Stand Sit to and from Stand Minimal Assistance,1 Person Assistance,Use of Upper Extremities Equipment Transfer Assistive Device Gait Belt,Front Wheeled Walker Orthotic/Prosthetic Devices or Brace: No Transfers Transfer Destination Toilet Transfer Technique ambulated Transfer Ability Level of Assist Minimal Assistance,1 Person Assistance,Use of Upper Extremities Comments Mobility Comments pt supine in bed and agreed to do PT. asked pt regarding back precautions but unable to recall. reviewed back precautions with pt and log roll bed mobility. talked to pt regarding back brace per doctor's order but refused to use TLSO brace at this time. Stated that she tried it awhile ago with OT but became too much for her and does not want to use it with PT. pt is aware of risks and benefits of back brace and does not want to wear it at this time. pt completed log roll bed mobility max A and max cues. able to sit on EOB CGA with cues for balance and posture. pt has a forward head/ shoulder posture. pt completed sit to stand from EOB min A and ambulated to the toilet min A. pt stated that she does not have back pain when she stands up straight. pt was able to complete hygiene care but needs assist with brief management. completed sit to stand from the toilet using grab bar min A and ambulated to the sink using FWW min A. Pt able to standing CGA to min A with FWW while completing handwashing. pt agreed to ambulate more in the room and completed ~ 45 ft using fWW min A. pt requested to go back to bed. completed sit to supine max A and max cues. positioned in bed. call light and table placed within reach. Gait Assessment Gait Distance (Feet) 45 Able to Maintain Weight Bearing Status Yes During Gait Assistive Devices Assistive Device Gait Belt,Front Wheeled Walker Orthotic/Prosthetic Devices or Brace: No Gait Deviations General Gait Pattern Decreased Stride Length, Decreased Feet Clearance, Flexed Trunk Factors Limiting Gait Function Factors Limiting Gait Function Decreased Activity Tolerance, Decreased Strength,Limited Range of Motion,Poor Balance PT-Balance Assessment Sitting Balance and Reactions Static Sitting Balance Ability Good Dynamic Sitting Balance Ability Fair Standing Balance and Reactions Static Standing Balance Ability Fair Dynamic Standing Balance Ability Fair Device Used FWW M5 PT-IP Objective Assessments Start: 05/13/21 15:36 Freq: NEEDED Status: Active Protocol: Document 05/13/21 14:25 AB (Rec: 05/13/21 15:57 AB [id number]) Orientation Orientation/Cognition Level of Alertness Alert Orientation Name,Place,Situation Language Function Ability No Deficits Noted Safety Awareness Decreased Safety Awareness Memory Description Short Term Impaired Gross Range of Motion Lower Extremity ROM Assessment Within Functional Limits Strength Lower Extremity Strength Hip 4-/5 Knee 4-/5 Sensation Assessment Sensation Gross Sensation WNL Muscle Tone Muscle Tone WNL Yes M6 PT-IP Treatment Start: 05/13/21 15:36 Freq: NEEDED Status: Active Protocol: Document 05/13/21 14:25 [facility] (Rec: 05/13/21 15:57 [email or web address] Therapy Treatment Education Education Provided Precautions,Safety M7 PT-IP Assessment and Plan Start: 05/13/21 15:36 Freq: NEEDED Status: Active Protocol: Document 05/13/21 14:25 AB (Rec: 05/13/21 15:57 AB [id number]) PT Summary Assessment and Plan Potential Rehabilitation Potential Fair Status of Condition at Evaluation Evolving Summary Impairments Pain,ROM,Strength,Balance, Coordination,Sensation,Tone, Cognition,Bed Mobility, Transfers,Gait,Activity Tolerance Assessment Summary pt requiring min A with mobility using fWW. Pt is Covid + and also has a T11 compression fx. Ortho doctor ordered TLSO but pt refused to wear during PT session but stated that she does not have pain when she is standing upright. pt will require SNF rehab at this time to improve strength and mobility independence. Goals Bed Mobility Goal Standby Assistance Transfer Goal Standby Assistance,Front Wheeled Walker Gait Goal Standby Assistance,Front Wheel Walker Gait Distance 150 Other Goals improve ambulation using 4WW SBA 150 ft Days to Meet Goals 10 Frequency of Treatment Frequency Of Treatment Once a Day Treatment Plan Physical Therapy Treatment Plan Bed Mobility Training,Transfer Training,Gait Training, Therapeutic Exercise,Balance Retraining,Discharge Planning, Hot or Cold Pack,Neuromuscular Re-ed,Coordination Retraining Precautions Lumbar Precautions Log Roll,No Twisting,Limit Bending,Lifting Restriction of 10 lbs Brace TLSO on when up, per comfort in bed as needed Recommendations To Nursing Amount of Assist Needed 1 Person Assist Discharge Recommendations PT Discharge Recommendations SNF Rehab Transportation Needs at Discharge Wheelchair/Cabulance
--- NOTE | 2021-05-13 14:27 | OT.IP.EVAL ---
Current Diagnoses Pleural effusion, not elsewhere classified (05/12/21) Wedge compression fracture of T11-T12 vertebra, initial encounter for closed fracture (05/12/21) COVID-19 (05/12/21) Past Medical History (Last Reviewed 05/12/21 @ 20:15 by Karyna Wolf MD) Atrial fibrillation Congestive heart failure Occupational Therapy Inpatient Evaluation/Re-Eval M1 PT/OT-IP Prior Functional Status Start: 05/13/21 13:58 Freq: NEEDED Status: Active Protocol: Document 05/13/21 13:58 [facility] (Rec: 05/13/21 14:22 [facility] [id number]) Medical Review Prior Functional Status Communication independent Mobility and Gait Pt states uses a 4WW for mobility needs. Activities of Daily Living and IADL's Pt states was able to do all her ADL and IADL needs prior to her injury. Social History Household Members spouse Living Arrangements House Number of Stairs To Enter/Railing? Ramp to get into the house. Home Environment High Toilet,Tub/Shower Home Equipment Four Wheel Walker,Shower Seat without Backrest,Hand Held Shower,Grab Bars Near Toilet, Grab Bars In Shower Additional Social History Comment Pt states used a shower krishan while her used the tub bench. Prior pt had caregivers come to asisst her for showers. Currently , pt's at SNF. M2 OT-IP Current Condition Start: 05/13/21 13:58 Freq: Status: Active Protocol: Document 05/13/21 13:58 [facility] (Rec: 05/13/21 14:22 [facility] [id number]) Occupational Therapy Current Condition Current Condition Evaluation Date 05/13/21 Treatment Diagnosis T11 compression fx, COVID +, decreased mobility Diagnosis Onset Date 05/12/21 Post Operative Precautions Lumbar Precautions Log Roll,No Twisting,Limit Bending,Lifting Restriction of 10 lbs Other Precautions Called Dr. Wolf to clarify orders for TLSO and parameters . Dr. Wolf gave verbal order for pt to have TLSO for comfort, especially on when up and ambulating, per comfort in bed and off for hygiene needs. M3 OT- IP Subjective and Pain Start: 05/13/21 13:58 Freq: Status: Active Protocol: Document 05/13/21 13:58 [facility] (Rec: 05/13/21 14:22 [facility] [id number]) OT- Subjective Occupational Therapy Visit Type Type Initial Evaluation Visit Start Time 09:00 Visit Stop Time 11:41 Total Visit Minutes 76 Notes Pt seen for split treatment 900-920 and [id number]. Occupational Therapy Visit Comments Patient Comments Able to talk to the pt regarding back brace and pt agreed woudl like to use TLSO. Able to talk to nursing regarding how to cathleen/doff the TLSO and the parameters given by Dr. Wolf. Patient/Caregiver Goals TO get better and go home. Pt realizes that she will be going to skilled rehab first prior to going home. OT Pain Assessment Pain When Pain Assessed During Mobility Pain Present Pain Present Denied Pain M4 OT- IP ADL's Start: 05/13/21 13:58 Freq: Status: Active Protocol: Document 05/13/21 13:58 [facility] (Rec: 05/13/21 14:22 [facility] [id number]) OT JON-Dscv-Wysaecg General Evaluation Self-Feeding Ability Standby Assistance Areas Needing Assistance Opening Containers Comments OT Self-Feeding Comments set-up assist OT ADL-Grooming General Evaluation Grooming Ability Standby Assistance Areas Needing Assistance Retrieving/Set-up of Grooming Items OT ADL-Oral Care General Eval Oral Care Ability Standby Assistance Areas of Assistance Retrieving/Set-Up of Items Comments Oral Care Comments Able to stand with FWW in front of the sink. Able to educated best to sip into a cup or hinge at her hips. OT ADL-Dressing General Eval Lower Body Dressing Ability Maximum Assistance Areas Needing Assistance Underpants/Brief,Socks Comments OT Dressing Comments At this time pt unable to LB dressing needs due to her pain . OT ADL-Toileting General Evaluation Toileting Ability Moderate Assistance,Maximum Assistance Areas Needing Assistance Manage Clothing Comments OT Toileting Comments Assist to cathleen /doff her brief over her hips. OT ADL-Bathing Comments OT Bathing Comments Not performed. M5 OT- IP IADL's Start: 05/13/21 13:58 Freq: Status: Active Protocol: Document 05/13/21 13:58 [facility] (Rec: 05/13/21 14:22 [facility] [id number]) OT-Instrumental Activities of Daily Living Home Safety Awareness Awareness of Need for Assistance at Home Good Awareness Ability to Problem Solve Emergency Able to Problem Solve Situations M6 OT- IP Functional Cognition Start: 05/13/21 13:58 Freq: Status: Active Protocol: Document 05/13/21 13:58 [facility] (Rec: 05/13/21 14:22 [facility] [id number]) Cognitive Factors Limiting Selfcare Function Cognitive Ability Level of Alertness Alert Patient Orientation Name,Age,Birthday,Month,Date, Year,Day of Week,Place, Situation Attention Span Ability Capable of Focused Attention, Capable of Sustained Attention Ability to Follow Commands Able to Follow One Step Commands Cognitive Comments Cognitive Assessment Comments Pt is very cooperative, pleasant, and able to follow commands for ADl and mobility needs. Pt needing initial education for log rolling needs and to be sure to push up from surfaces when coming to stand. OT- Vision and Hearing OT- Vision Assessment Visual Acuity Glasses For Reading M7 OT- IP Mobility and Balance Start: 05/13/21 13:58 Freq: Status: Active Protocol: Document 05/13/21 13:58 [facility] (Rec: 05/13/21 14:22 [facility] [id number]) OT- Bed Mobility Assessment Rolling Type of Rolling Roll to Left Level of Assistance Moderate Assistance Supine to Sit Supine to Sit Assist Moderate Assistance OT-Transfer Assessment Sit to and From Stand Sit to and from Stand Moderate Assistance Transfers Transfer Ability Minimal Assistance Technique Transfer Destination Bed,Toilet Transfer Technique Stand Step Pivot Devices Transfer Assistive Devices Gait Belt,Front Wheeled Walker OT- Gait Assessment Comments Gait Ability Comments CGA/ABDELRAHMAN with FWW OT- Balance Assessment Sitting Balance and Reactions Static Sitting Balance Ability Good Dynamic Sitting Balance Ability Fair Standing Balance and Reactions Static Standing Balance Ability Fair Comments Other Balance Tests/Deviations/Treatment Pt needing use of FWW for : steadying when on her feet. M8 OT- IP Objective Assessments Start: 05/13/21 13:58 Freq: Status: Active Protocol: Document 05/13/21 13:58 [facility] (Rec: 05/13/21 14:22 [facility] [id number]) OT Gross Range of Motion Upper Extremity Range of Motion Assessment Bilaterally Impaired OT Strength Upper Extremity Strength Assessment Bilaterally Impaired OT- Coordination Assessment Comments Coordination Comments Arthritic changes in hands and needing assist for set-up for grooming needs. OT-Muscle Tone Assessment Muscle Tone WNL Yes M9 OT- IP Assessment and Plan Start: 05/13/21 13:58 Freq: Status: Active Protocol: Document 05/13/21 13:58 [facility] (Rec: 05/13/21 14:22 [facility] [id number]) OT Summary Assessment and Plan Potential Rehabilitation Potential Good Analytic Complexity at Evaluation High Summary OT Impairments Pain,Balance,Functional Mobility,Grooming,Dressing, Toileting,Bathing,Toilet Transfers,Shower Transfers, Activity Tolerance Progress Towards Goals Slow Progress due to Pain Assessment Summary Pt high complexity and here with T11 compression fx, COVID + and PE. Prior pt was completely independent with her needs fo ADL's and mobility with FWW , however noted recent having more falls . Pt woudl highly benefit from skilled rehab prior to going home. Goals Grooming Goal Independent Dressing Goal Independent Toileting Goal Independent Bathing Goal Independent Toilet Transfer Goal Independent Shower Transfer Goal Independent Days to Meet Goals 20 Frequency of Treatment Frequency Of Treatment Once a Day Treatment Plan OT Treatment Plan ADL Training,Functional Mobility,Patient/Family Education,Discharge Planning Other Treatment Recommendations and Next practice pt to cathleen/jey TLSO Treatment Focus Discharge Recommendations OT Discharge Recommendations SNF Rehab Transportation Needs at Discharge Wheelchair/Cabulance
[2021-05-13] MEDS: AZITHROMYCIN 500 MG in DEXTROSE 5% IN WATER 250 ML 175 ML IV (15:41)
[2021-05-13] MEDS: WARFARIN 5 MG TABLET 2.5 MG PO (17:27)
[2021-05-13] MEDS: AMITRIPTYLINE 25 MG TABLET PO (21:29)
[2021-05-14] VITALS (8 sets, daily range): BP systolic 123–145; BP diastolic 73–95; PULSE 90–109; RESP 16–18; TEMP 36.2–37.1; O2SAT 95–99
[2021-05-14] MEDS: TRAMADOL 50 MG TABLET PO ×2 (01:41→11:20)
[2021-05-14 05:50] LABS: Basophils Absolute Auto 0 /uL (0-100); Basophils Percent Auto 0.3 % (0-2); Eosinophils Absolute Auto 0 /uL (0-450); Hematocrit 38.2 % (36-46); Hemoglobin 12.7 g/dL (12.0-16.0); Lymphocytes Absolute Auto 1700 /uL (1100-4500); Lymphocytes Percent Auto 11.7 % (25-40); Mean Corpuscular HGB Conc 33.2 % (30-36); Mean Corpuscular Hemoglobin 30.2 PG (26-34); Mean Corpuscular Volume 90.9 fL (80-100); Monocytes Absolute Auto 1000 /uL (0-900); Monocytes Percent Auto 6.8 % (3-14); Neutrophils Absolute Auto 11900 /uL (1500-7000); Neutrophils Percent Auto 81.2 % (50-75); Platelet Count 143 X10^3/uL (150-400); Red Cell Distribution Width 14.4 % (11.6-14.8); White Blood Cell Count 14.6 X10^3/uL (4.5-11.0)
[2021-05-14 05:52] LABS: Add Manual Diff / Slide Review SLIDE REVIEW
[2021-05-14 05:57] LABS: BUN Creatinine Ratio 27.4 (6-22); Blood Urea Nitrogen 26 mg/dL (7-17); Calcium 9.8 mg/dL (8.4-10.2); Carbon Dioxide 31 mmol/L (22-32); Chloride 104 mmol/L (98-107); Estimated Glomerular Filt Rate 55.9 mL/min (>60); Glucose 160 mg/dL (80-110); HEMOLYSIS < 15 (0-50); Potassium 3.7 mmol/L (3.4-5.1); Sodium 138 mmol/L (137-145)
[2021-05-14 06:18] LABS: RBC Morphology Normal Morphology
[2021-05-14] MEDS: METOPROLOL ER 50 MG TABLET PO (09:32)
[2021-05-14] MEDS: LOSARTAN 25 MG TABLET 50 MG PO (09:32)
[2021-05-14] MEDS: DEXAMETHASONE 10 MG/ML VIAL 6 MG IV (09:32)
[2021-05-14] MEDS: AMIODARONE 200 MG TABLET PO (09:32)
[2021-05-14] MEDS: FUROSEMIDE 40 MG TABLET PO (09:32)
--- NOTE | 2021-05-14 10:50 | OT.IP.TRT ---
Current Diagnoses Pleural effusion, not elsewhere classified (05/12/21) Wedge compression fracture of T11-T12 vertebra, initial encounter for closed fracture (05/12/21) COVID-19 (05/12/21) Occupational Therapy Treatment Note M2 OT-IP Current Condition Start: 05/13/21 13:58 Freq: Status: Discharge Protocol: Document 05/13/21 13:58 [facility] (Rec: 05/13/21 14:22 [facility] [id number]) Occupational Therapy Current Condition Current Condition Evaluation Date 05/13/21 Treatment Diagnosis T11 compression fx, COVID +, decreased mobility Diagnosis Onset Date 05/12/21 Post Operative Precautions Lumbar Precautions Log Roll,No Twisting,Limit Bending,Lifting Restriction of 10 lbs Other Precautions Called Dr. Wolf to clarify orders for TLSO and parameters . Dr. Wolf gave verbal order for pt to have TLSO for comfort, especially on when up and ambulating, per comfort in bed and off for hygiene needs. M3 OT- IP Subjective and Pain Start: 05/13/21 13:58 Freq: Status: Discharge Protocol: Document 05/14/21 09:45 [facility] (Rec: 05/14/21 14:11 [facility] [id number]) OT- Subjective Occupational Therapy Visit Type Type Treatment Note Visit Start Time 09:45 Visit Stop Time 10:50 Total Visit Minutes 55 Occupational Therapy Visit Comments Patient Comments Pt wanting to shower. Patient/Caregiver Goals To go to skilled rehab. OT Pain Assessment Pain When Pain Assessed At Rest Pain Present Pain Present Pain Reported Location Right Back Intensity 5 Scale Used Numeric (0 - 10) M4 OT- IP ADL's Start: 05/13/21 13:58 Freq: Status: Discharge Protocol: Document 05/14/21 09:45 [facility] (Rec: 05/14/21 14:11 [facility] [id number]) OT ADL-Grooming General Evaluation Grooming Ability Standby Assistance Areas Needing Assistance Retrieving/Set-up of Grooming Items Comments OT Grooming Comments while seated at the edge of the bed OT ADL-Oral Care General Eval Oral Care Ability Independent OT ADL-Dressing General Eval Lower Body Dressing Ability Maximum Assistance Areas Needing Assistance Underpants/Brief,Socks Comments OT Dressing Comments At this time pt unable to LB dressing needs due to her pain . OT ADL-Bathing Bathing Type Bathing Type Shower General Evaluation Bathing Ability Maximal Assistance Comments OT Bathing Comments Due to pt in pain having to assist pt more for showering needs. Pt able to wash her hair, face, and arms. M5 OT- IP IADL's Start: 05/13/21 13:58 Freq: Status: Discharge Protocol: Document 05/13/21 13:58 [facility] (Rec: 05/13/21 14:22 [facility] [id number]) OT-Instrumental Activities of Daily Living Home Safety Awareness Awareness of Need for Assistance at Home Good Awareness Ability to Problem Solve Emergency Able to Problem Solve Situations M6 OT- IP Functional Cognition Start: 05/13/21 13:58 Freq: Status: Discharge Protocol: Document 05/14/21 09:45 [facility] (Rec: 05/14/21 14:11 [facility] [id number]) Cognitive Factors Limiting Selfcare Function Cognitive Ability Level of Alertness Alert Patient Orientation Name,Age,Birthday,Month,Date, Year,Day of Week,Place, Situation Attention Span Ability Capable of Focused Attention, Capable of Sustained Attention Ability to Follow Commands Able to Follow One Step Commands Cognitive Comments Cognitive Assessment Comments Pt states feels that the TLSO in too much for her to do and would rather wait to use it at skilled rehab. Explained to pt that nursing and therapists can assist her to put in on if it helps with her pain. M7 OT- IP Mobility and Balance Start: 05/13/21 13:58 Freq: Status: Discharge Protocol: Document 05/14/21 09:45 [facility] (Rec: 05/14/21 14:11 [facility] [id number]) OT- Bed Mobility Assessment Supine to Sit Supine to Sit Assist Maximum Assistance OT-Transfer Assessment Sit to and From Stand Sit to and from Stand Minimal Assistance,Moderate Assistance Transfers Transfer Ability Minimal Assistance Technique Transfer Destination Bed,Shower Stall Transfer Technique Stand Step Pivot Devices Transfer Assistive Devices Gait Belt,Front Wheeled Walker Comments Mobility Comments Heavy use of grab bars to assist to stand and assist from therapist. OT- Balance Assessment Sitting Balance and Reactions Static Sitting Balance Ability Fair Dynamic Sitting Balance Ability Poor Comments Other Balance Tests/Deviations/Treatment Pt having increased pain while : sitting and needing use of grab bar to hold onto while showering. M8 OT- IP Objective Assessments Start: 05/13/21 13:58 Freq: Status: Discharge Protocol: Document 05/13/21 13:58 [facility] (Rec: 05/13/21 14:22 [facility] [id number]) OT Gross Range of Motion Upper Extremity Range of Motion Assessment Bilaterally Impaired OT Strength Upper Extremity Strength Assessment Bilaterally Impaired OT- Coordination Assessment Comments Coordination Comments Arthritic changes in hands and needing assist for set-up for grooming needs. OT-Muscle Tone Assessment Muscle Tone WNL Yes M9 OT- IP Assessment and Plan Start: 05/13/21 13:58 Freq: Status: Discharge Protocol: Document 05/14/21 09:45 [facility] (Rec: 05/14/21 14:11 [facility] [id number]) OT Summary Assessment and Plan Potential Rehabilitation Potential Good Analytic Complexity at Evaluation High Summary OT Impairments Pain,Balance,Functional Mobility,Grooming,Dressing, Toileting,Bathing,Toilet Transfers,Shower Transfers, Activity Tolerance Progress Towards Goals Progressing Toward Goals,Slow Progress due to Pain Assessment Summary Pt able to tolerate showering today, but needing lots of assist as pt not able to assist much due to her back pain. Pt insists that she will use the back brace in rehab but feels that it is too much trouble while here. Pt going to skilled rehab. Goals Grooming Goal Independent Dressing Goal Independent Toileting Goal Independent Bathing Goal Independent Toilet Transfer Goal Independent Shower Transfer Goal Independent Days to Meet Goals 20 Frequency of Treatment Frequency Of Treatment Once a Day Treatment Plan OT Treatment Plan ADL Training,Functional Mobility,Patient/Family Education,Discharge Planning Discharge Recommendations OT Discharge Recommendations SNF Rehab Transportation Needs at Discharge Wheelchair/Cabulance,Stretcher /Ambulance
[2021-05-14] MEDS: LIDOCAINE PATCH 1 EACH ADH..PATCH TOP (11:21)
--- NOTE | 2021-05-14 11:55 | PC.NURSE ---
Patient showered and has left to go to [place] at [facility]. Report has been called. Her lungs were clear x4, on RA at 99%. Tramadol given to patient prior to her leaving and also a lidocaine patch attached to patients back.
--- NOTE | 2021-05-14 14:06 | PC.NURSE ---
Attempted multiple times to give report to Cat[facility] at [facility]. Last phone call a woman answered got the phone number for [facility] and stated that RN would call back. This was around 40 minutes ago.
--- NOTE | 2021-05-14 15:09 | CM.DPNOTE ---
DCP Note Per patient's request to be with spouse Ken, who DC from to [place] at [facility] in [place] yesterday, faxed referral to [facility] yesterday, [facility] at [place] accepted. [facility] explained that 3 midnight rule was being waived d/t C19 pandemic. BLS was arranged for p/u today at 1130, RN, patient and Dr Hayward made aware and all agreeable to plan. This [employer] faxed completed PASRR, completed and signed med list and Rx and available DC information to [facility]. SANDI Anderson attempted nurse report throughout the morning and had no luck getting in touch with a nurse. Still awaiting DC Summary. IMM provided. Plan: DC this morning to [place] at [facility] in [place]; patient had been admitted w/ C19 pneumonia w/recent GLF and subsequent T-11 fx JW
--- NOTE | 2021-05-14 15:49 | P.DS_ITS ---
History of Present Illness History of Present Illness Chief complaint: Difficulty breathing Narrative: Per Dr. Ybarra: 85yo female with a hx of hypertension, atrial fibrillation on warfarin and amiodarone, and HFrEF (EF 25-30%), likely dilated cardiomyopathy, that presents with SOB and cough. She reports this has been going on for 2-3 days. However, this morning she was having a hard time catching her breath, that's when she asked her son to call EMS. Of note, her , whom she lives with, was recently diagnosed with COVID. The patient has received 2 of the Moderna vaccines for COVID. She has been unable to get a booster shot. She denies any other sick contacts. She denies any recent travel history. She denies fever/chills, rhinorrhea, abd pain, n/v/d, urinary complaints, weight loss. She does having more frequent falls at home lately, and she attributes this to unsteadiness. The patient endorses a remote 5 pack-yr smoking history. She denies any EtOH or illicit drug use. She reports being adherent with all her medications, and knows them by name and dose, including her lasix pill. She reports an allergy to gabapentin, as having led her to have suicidal thoughts. She denies knowing of any relevant family history. PSH is unremarkable. Of note, the patient does endorse wearing oxygen at home sometimes, especially with exertion. Discharge Providers Provider Date of admission: 05/12/21 11:55 Discharge Date: 05/14/21 Primary care physician: Marsha Colin PA-C Consults: 05/12/21 04:43 Consult to Respiratory Therapy Evaluate & Treat Comment: Physician Instructions: Evaluate and treat 05/12/21 14:34 Consult to Discharge Planning Routine Comment: Consult to Occupational Therapy Evaluate & Treat Comment: TLSO on when up/amb, per comfort/ bed, off hygiene Physician Instructions: Evaluate and treat Consult to Physical Therapy Evaluate & Treat Comment: Physician Instructions: Evaluate and Treat 05/12/21 14:37 Consult to Pharmacy Routine Comment: Consult for warfarin dosing/monitoring, thank you 05/13/21 08:54 Consult to Occupational Therapy Evaluate & Treat Comment: TLSO on when up, per comfort in bed as needed Physician Instructions: Evaluate and treat Discharge provider: Melo Carranza MD Summary Hospital Course Discharge Diagnosis: 1. Acute hypoxic respiratory failure 2. COVID positive 3. Community-acquired pneumonia 4. Hypertension 5. Atrial fibrillation 6. HFrEF (EF 25-30%), likely dilated cardiomyopathy 7. T-11 compression fracture, acute 8. Insomnia/depression Hospital Course: Ms. Da Silva initially came in to the hospital with cough and shortness of breath. She had been having falls at home. She was found to be COVID positive and given steroids. She had good improvement and on day of discharge she was not requiring oxygen and her treatment for COVID was not longer necessary. She was discharged with a few more days of antibiotics to treat a possible pneumonia. In addition she was found to have a compression fracture of T11 which did not need surgery. Orthopedic surgery recommended a TLSO brace, but not to use it while she was still having respiratory symptoms. It can be placed for comfort after her respiratory symptoms resolve. She can follow up with orthopedic surgery in two weeks to make sure she is improving. She was discharged with pain medications. She was discharged to SNF to improve her strength prior to going back home. For COVID she has been vaccinated, but no booster, she should try to isolate if possible for a week. Discharge time 33 minutes Exam Vital Signs (past 8 hours): - 05/14/21 08:30 Temperature 97.7 F Pulse Rate 99 H Respiratory Rate 18 Blood Pressure 145/95 H Pulse Oximetry 99 Oxygen Delivery Method Room Air Oxygen Flow Rate 0 Narrative Exam Narrative: GEN: comfortable and in no apparent, acute distress Pulm: clear bilaterally CV: RRR, S1 and S2 heart sounds normal, S3 heart sound appreciated, without significant peripheral edema GI: Soft, non-distended, non-tender, bowel sounds present Objective Labs Result Diagrams: 05/14/21 05:28 05/14/21 05:28 Labs: Laboratory Results - last 24 hr 05/14/21 05/14/21 05:28 05:28 WBC 14.6 H D RBC 4.20 Hgb 12.7 Hct 38.2 MCV 90.9 MCH 30.2 MCHC 33.2 RDW 14.4 Plt Count 143 L Neut % (Auto) 81.2 H Lymph % (Auto) 11.7 L [place] % (Auto) 6.8 Eos % (Auto) 0.0 L Baso % (Auto) 0.3 Neut # (Auto) 77294 H Lymph # (Auto) 1700 [place] # (Auto) 1000 H Eos # (Auto) 0 Baso # (Auto) 0 Plt Morphology Comment * RBC Morphology Normal morphology Sodium 138 Potassium 3.7 Chloride 104 Carbon Dioxide 31 BUN 26 H Creatinine 0.95 Estimated GFR 55.9 L BUN/Creatinine Ratio 27.4 H Glucose 160 H Calcium 9.8 Magnesium 2.0 PFSH Medical History Atrial fibrillation Congestive heart failure Social History marital status: household members: spouse Smoking Status: Never smoker alcohol intake: former Discharge Plan Discharge Plan Patient Disposition: SNF Discharge orders & Medications Prescriptions: New oxycodone-acetaminophen 5-325 mg tablet 1 tab PO Q4H PRN (Reason: pain) Qty: 14 0RF lidocaine 5 % Adhesive Patch,Medicated 1 ea topical DAILY Qty: 10 0RF levofloxacin 500 mg tablet 500 mg PO DAILY Qty: 3 0RF Continued furosemide 40 mg Tablet 40 mg PO DAILY 0RF metoprolol succinate 100 mg tablet extended release 24 hr 100 mg PO BID 0RF Label Comments: TAKE ONE TABLET BY MOUTH TWICE DAILY warfarin 2.5 mg tablet See Rx Instructions .ROUTE .COMPLEX 0RF Label Comments: take 2.5mg (1 tablet) by mouth on Sunday, Sunday, Sunday, Sunday, and Sunday, and 1.25mg (12 tablet) on Sunday and Rx Instructions: take 2.5mg (1 tablet) by mouth on Sunday, Sunday, Sunday, Sunday, and Sunday, and 1.25mg (12 tablet) on Sunday and amitriptyline 25 mg Tablet 25 mg PO BEDTIME 0RF losartan 25 mg Tablet 25 mg PO DAILY 0RF amiodarone 200 mg tablet 200 mg PO DAILY 0RF Label Comments: Take one tablet by mouth twice daily for 7 days, then take 1 tablet by mouth once daily. tramadol 50 mg tablet 50 mg PO Q8H PRN (Reason: pain) Qty: 10 0RF Follow up/Referrals: Marsha Colin PA-C [Primary Care Provider] - Discharge Health Status Multidrug resistant organism: No MDRO Precautions: [place] Diet/Activity/Treatments Diet: Regular Liquid consistency: Normal/Thin Food texture: Regular [facility] Rehab type: Physical therapy and Occupational therapy Discharge Data Primary Care Provider: Marsha Colin VTE Deep Vein Thrombosis/Pulmonary Embolism Present on Admission: No
--- NOTE | 2021-05-15 10:48 | CM.DPC ---
Call from Yolanda maza Caty at [facility] stating she did not receive a copy of pt's d/c summary from yesterday and SW refaxed along with requested MAR to review to fax [phone] for review. [facility]
== END 2021-05-14 11:30 | DRG 177 ==
LOC: ED 09:42 → AC 12:08
PROVIDERS: Admitting Provider Student in an Organized Health Care Education/Training Program; Emergency Provider Emergency Medicine; Family Provider Family Medicine; PCP Physician Assistant Medical; Referring Provider Emergency Medicine; Visit Provider Student in an Organized Health Care Education/Training Program
DX: U07.1 COVID-19 (principal); J12.82 Pneumonia due to coronavirus disease 2019; J96.01 Acute respiratory failure with hypoxia; J18.9 Pneumonia, unspecified organism; S22.089A Unspecified fracture of T11-T12 vertebra, initial encounter for closed fracture; S22.080A Wedge compression fracture of T11-T12 vertebra, initial encounter for closed fracture; I50.20 Unspecified systolic (congestive) heart failure; I48.91 Unspecified atrial fibrillation; F32.A Depression, unspecified; G47.00 Insomnia, unspecified; W19.XXXA Unspecified fall, initial encounter; Z79.01 Long term (current) use of anticoagulants; Z87.891 Personal history of nicotine dependence; Z91.81 History of falling; Z66 Do not resuscitate; W18.30XA Fall on same level, unspecified, initial encounter; Z20.822 Contact with and (suspected) exposure to COVID-19
CPT/HCPCS: 70450; 71045; 72072; 80048; 80053; 81003; 81015; 82550; 83605; 83735; 83880; 84100; 84484; 85025; 85610; 85730; 87040; 87070; 87205; 87635; 94640; 94760; 96374; 97162; 97167; 97530; 97535; 99284; 99285; C9803; A9270; J0696; J1100; J1940

== ENCOUNTER → 2021-07-21 12:33 | Outpatient (CLI) | payer MEDICARE, OTHER, SELFPAY ==
[2021-05-12 13:22] VITALS: BMI 25.5
--- NOTE | 2021-07-21 12:37 | DI.MRI.S_ITS ---
PROCEDURE: MR THORACIC SPINE WO CON INDICATIONS: T11 fracture, right thoracic radiculopathy TECHNIQUE: Noncontrast sagittal T1 spine echo and T2 fast spin echo, sagittal STIR, axial T1 and T2 fast spin echo through the thoracic spine. COMPARISON: None. FINDINGS: Image quality: This examination is limited by involuntary motion artifact. Alignment and Curvature: Accentuated thoracic kyphosis is seen. No focal AP alignment abnormality is seen. Bone Marrow: Marrow is of normal overall signal. No acute vertebral body compression fractures. Several chronic appearing anterior wedge deformities are seen, which are worst at the T11 level, with approximately 50% loss of height anteriorly. Minimal posterior displacement of fracture fragments can be seen, 1 mm. Spinal Cord: Visualized spinal cord is normal in size and signal. Paraspinous Soft Tissues: No paravertebral masses. Left renal cysts are partially seen, measuring up to 5.5 cm. Miscellaneous: At least moderate neural foraminal narrowing can be seen at the T10-T11 level. Minimal central canal narrowing can be seen at T10-T11. Scattered levels of mild neural foraminal narrowing can be seen elsewhere. No significant central canal narrowing can be seen elsewhere. IMPRESSION: Remote T11 compression deformity, with approximately 50% loss of height anteriorly. Additional areas of mild anterior wedge deformity can be seen, with associated accentuated thoracic kyphosis. Minimal central canal narrowing is seen at T10-T11, with moderate bilateral neural foraminal narrowing. Milder degenerative changes are seen elsewhere. Dictated by: Keith Batista M.D. on 07/21/2021 at 13:51 Approved by: Keith Batista M.D. on 07/21/2021 at 13:54
== END ==
PROVIDERS: Family Provider Family Medicine; PCP Nurse Practitioner Gerontology; Referring Provider Physical Medicine & Rehabilitation; Visit Provider Physical Medicine & Rehabilitation
DX: S22.089A Unspecified fracture of T11-T12 vertebra, initial encounter for closed fracture (principal); M47.814 Spondylosis without myelopathy or radiculopathy, thoracic region; M40.204 Unspecified kyphosis, thoracic region; M48.04 Spinal stenosis, thoracic region
CPT/HCPCS: 72146